=== PATIENT | female | born 1955 | race Caucasian/White ===

== ENCOUNTER 2020-08-17 08:29 | Outpatient (REF) | payer MEDICARE, BC, SELFPAY ==
[2020-08-17 12:23] LABS: Alanine Aminotransferase 17 U/L (0-31); Albumin Level 4.4 g/dL (3.5-5.0); Alkaline Phosphatase 53 U/L (39-117); Anion Gap 12 (12-20); Aspartate Amino Transferase 26 U/L (5-31); Bilirubin Total 1.5 mg/dL (0.0-1.0); Blood Urea Nitrogen 14 mg/dL (9-16); Calcium 9.4 mg/dL (8.4-10.2); Carbon Dioxide 31 mmol/L (22-29); Chloride 103 mmol/L (96-108); Cholesterol 195 mg/dL; Estimated Glomerular Filt Rate > 60; Glucose Fasting 83 mg/dL (60-99); HDL Cholesterol 60 mg/dL; LDL Cholesterol Calculated 111 mg/dl; Potassium 4.3 mmol/l (3.3-5.1); Sodium 142 mmol/L (135-145); Total Protein 7.1 g/dL (6.5-8.0); Triglycerides 123 mg/dL
[2020-08-17 12:45] LABS: TSH reflex Free T4 0.84 mIU/mL (0.32-4.0); Vitamin D 25-OH Total 43.8 ng/mL (>30)
== END 2020-08-17 08:30 | disposition home or self-care (01) ==
LOC: HO.HMGCLDS 08:29
PROVIDERS: PCP Nurse Practitioner Family; Visit Provider Nurse Practitioner Family
DX: E03.9 Hypothyroidism, unspecified (principal); E78.5 Hyperlipidemia, unspecified; Z78.0 Asymptomatic menopausal state
CPT/HCPCS: 80053; 80061; 82306; 84443

== ENCOUNTER 2022-04-19 08:06 | Outpatient (REF) | payer MEDICARE, BC, SELFPAY ==
[2022-04-19 11:22] LABS: Basophils Percent Auto 0.6 % (0-2); Eosinophils Absolute Auto 0.2 X10*3/uL (0.0-0.4); Eosinophils Percent Auto 3.2 % (0-4); Hemoglobin 12.3 g/dl (12.0-16.0); Imm Gran Abs Auto 0.01 X10*3/uL (0.00-0.03); Imm Gran Pct Auto 0.2 % (0.0-0.4); Lymphocytes Absolute Auto 1.9 X10*3/uL (1.2-4.9); Lymphocytes Percent Auto 38.6 % (20-40); MANUAL DIFF FLAG SCAN; Mean Corpuscular HGB Conc 31.5 g/dl (31.0-35.0); Mean Corpuscular Hemoglobin 27.6 pg (27.0-33.0); Mean Corpuscular Volume 87.4 fL (80.0-98.0); Mean Platelet Volume 11.1 fL (9.4-12.3); Monocytes Absolute Auto 0.4 X10*3/uL (0.1-1.2); Monocytes Percent Auto 7.4 % (2-11); Neutrophils Absolute Auto 2.5 x10*3/uL (2.0-8.3); Platelet Count 227 X10*3/uL (160-400); Red Blood Count 4.46 X10*6/uL (4.20-5.50); Red Cell Distribution Width 12.4 % (11.0-16.0); SCAN SMEAR FLAG 1
[2022-04-19 11:26] LABS: Appearance Urine HAZY; Color Urine YELLOW; Glucose Urine UA NEG (NEG); Leukocyte Esterase Urine NEG (NEG); Nitrite Urine NEG (NEG); PH 7.5 (5.0-8.0); Urine Blood NEG (NEG); Urine Ketones NEG (NEG); Urine Protein NEG (NEG-TRACE)
[2022-04-19 11:41] LABS: SLIDE REVIEW VERIFIED
[2022-04-19 11:45] LABS: Alanine Aminotransferase 13 U/L (0-31); Albumin Level 4.1 g/dL (3.5-5.0); Alkaline Phosphatase 52 U/L (39-117); Anion Gap 9 (12-20); Aspartate Amino Transferase 21 U/L (5-31); Bilirubin Total 1.7 mg/dL (0.0-1.0); Blood Urea Nitrogen 13 mg/dL (9-16); Calcium 9.2 mg/dL (8.4-10.2); Carbon Dioxide 30 mmol/L (22-29); Chloride 106 mmol/L (96-108); Cholesterol 180 mg/dL; Estimated Glomerular Filt Rate > 60; Glucose Fasting 92 mg/dL (60-99); HDL Cholesterol 61 mg/dL; LDL Cholesterol Calculated 105 mg/dl; Potassium 4.4 mmol/L (3.3-5.1); Sodium 141 mmol/L (135-145); Total Protein 6.6 g/dL (6.5-8.0); Triglycerides 71 mg/dL
[2022-04-19 12:03] LABS: TSH reflex Free T4 0.28 uIU/mL (0.32-4.0)
[2022-04-19 12:41] LABS: Free T4 (Free Thyroxine) 1.17 ng/dL (0.71-1.85)
== END 2022-04-19 08:07 | disposition home or self-care (01) ==
LOC: HO.HMGCLDS 08:06
PROVIDERS: PCP Nurse Practitioner Family; Visit Provider Nurse Practitioner Family
DX: Z00.00 Encounter for general adult medical examination without abnormal findings (principal); R17 Unspecified jaundice; E78.5 Hyperlipidemia, unspecified; F41.9 Anxiety disorder, unspecified; Z78.0 Asymptomatic menopausal state
CPT/HCPCS: 36415; 80053; 80061; 81003; 84439; 84443; 85025

== ENCOUNTER 2022-05-24 11:15 | Outpatient (REF) | payer MEDICARE, BC, SELFPAY ==
[2022-05-24 14:05] LABS: Bilirubin Direct 0.5 mg/dL (0.0-0.5); Bilirubin Total 1.7 mg/dL (0.0-1.0)
== END 2022-05-24 11:16 | disposition home or self-care (01) ==
LOC: HO.HMGCLDS 11:15
PROVIDERS: Visit Provider Nurse Practitioner Family
DX: R17 Unspecified jaundice (principal)
CPT/HCPCS: 36415; 82247; 82248

== ENCOUNTER 2023-01-11 06:51 | Outpatient (REF) | payer MEDICARE, BC, SELFPAY ==
[2023-01-11 11:25] LABS: MANUAL DIFF FLAG NO
[2023-01-11 11:35] LABS: Appearance Urine Turbid; Color Urine Yellow; Glucose Urine UA Negative (Negative); Leukocyte Esterase Urine Large (3+) (Negative); Nitrite Urine Negative (Negative); PH 7.5 (5.0-9.0); Specific Gravity - Urine 1.015 (1.005-1.025); UMIC TRIGGER UACC YES; Urine Blood Negative (Negative); Urine Ketones Negative (Negative); Urine Protein Negative (Neg-Trace)
[2023-01-11 11:38] LABS: Bacteria Urine None Seen (None Seen); Hyaline Casts Urine 0-2 /LPF (0-2); UACC Culture Trigger YES
[2023-01-11 11:51] LABS: Basophils Percent Auto 0.7 % (0-2); Eosinophils Absolute Auto 0.2 X10*3/uL (0.0-0.4); Eosinophils Percent Auto 4.1 % (0-4); Hematocrit 40.1 % (37.0-47.0); Hemoglobin 12.8 g/dl (12.0-16.0); Imm Gran Abs Auto 0.01 X10*3/uL (0.00-0.03); Imm Gran Pct Auto 0.2 % (0.0-0.4); Lymphocytes Absolute Auto 2.2 X10*3/uL (1.2-4.9); Lymphocytes Percent Auto 40.7 % (20-40); Mean Corpuscular HGB Conc 31.9 g/dl (31.0-35.0); Mean Corpuscular Hemoglobin 27.6 pg (27.0-33.0); Mean Corpuscular Volume 86.4 fL (80.0-98.0); Mean Platelet Volume 11.6 fL (9.4-12.3); Monocytes Absolute Auto 0.4 X10*3/uL (0.1-1.2); Monocytes Percent Auto 6.5 % (2-11); Neutrophils Absolute Auto 2.6 x10*3/uL (2.0-8.3); Neutrophils Percent Auto 47.8 % (45-73); Platelet Count 223 X10*3/uL (160-400); Red Blood Count 4.64 X10*6/uL (4.20-5.50); Red Cell Distribution Width 12.6 % (11.0-16.0); White Blood Count 5.4 X10*3/uL (4.8-10.8)
[2023-01-11 12:49] LABS: Alanine Aminotransferase 16 U/L (0-31); Alkaline Phosphatase 47 U/L (39-117); Anion Gap 11 (12-20); Aspartate Amino Transferase 21 U/L (5-31); Bilirubin Total 1.7 mg/dL (0.0-1.0); Blood Urea Nitrogen 14 mg/dL (9-16); Carbon Dioxide 29 mmol/L (22-29); Chloride 106 mmol/L (96-108); Cholesterol 193 mg/dL; Estimated Glomerular Filt Rate > 60; Glucose Fasting 92 mg/dL (60-99); HDL Cholesterol 60 mg/dL; LDL Cholesterol Calculated 114 mg/dl; Potassium 3.9 mmol/L (3.3-5.1); Sodium 142 mmol/L (135-145); TSH reflex Free T4 1.14 uIU/mL (0.32-4.0); Total Protein 6.2 g/dL (6.5-8.0); Triglycerides 95 mg/dL; Vitamin D 25-OH Total 46.2 ng/mL (>30)
== END 2023-01-11 06:52 | disposition home or self-care (01) ==
LOC: HO.HMGCLDS 06:51
PROVIDERS: PCP Nurse Practitioner Family; Visit Provider Nurse Practitioner Family
DX: E03.9 Hypothyroidism, unspecified (principal); Z78.0 Asymptomatic menopausal state; R82.90 Unspecified abnormal findings in urine; E55.9 Vitamin D deficiency, unspecified
CPT/HCPCS: 36415; 80053; 80061; 81001; 82306; 84443; 85025; 87086

== ENCOUNTER 2023-01-23 10:25 | Outpatient (REF) | payer MEDICARE, BC, SELFPAY ==
--- NOTE | ~2023-01-23 | US_ITS ---
EXAMINATION: US ABDOMEN COMPLETE CLINICAL INFORMATION: Unspecified jaundice. High bilirubin. COMPARISON: None available. TECHNIQUE: Real-time imaging of the abdominal viscera. FINDINGS: PANCREAS: Normal. ABDOMINAL AORTA: The proximal, mid, and distal segments are normal in caliber. INFERIOR VENA CAVA: Visualized portions are normal. LIVER: Normal. The liver is normal in size. The liver contour is normal. Parenchymal echogenicity is normal. No focal hepatic lesion. There is no intrahepatic biliary duct dilatation seen. GALLBLADDER: The gallbladder is physiologically distended. 2 mm echogenic focus contiguous with the gallbladder wall is most suggestive of a small polyp. No definitive shadowing gallstones identified. Some echogenic bowel is also noted. No gallbladder wall thickening. Negative sonographic Ji's sign. COMMON BILE DUCT: Normal in caliber measuring 0.4 cm in diameter. RIGHT KIDNEY: Normal. No hydronephrosis. No renal calculi or focal parenchymal lesions. The kidney measures 10.0 cm in maximum dimension. LEFT KIDNEY: Normal. No hydronephrosis. No renal calculi or focal parenchymal lesions. The kidney measures 10.3 cm in maximum dimension. SPLEEN: Normal. The spleen measures 8.2 cm in maximum dimension. FREE FLUID: None. US/US abdomen complete IMPRESSION: Suspected 2 mm gallbladder polyp. No definitive shadowing gallstones identified. No ultrasound evidence to suggest acute cholecystitis.
== END 2023-01-23 10:26 | disposition home or self-care (01) ==
LOC: HO.HMGCX 10:25
PROVIDERS: PCP Nurse Practitioner Family; Visit Provider Nurse Practitioner Family
DX: R17 Unspecified jaundice (principal)
CPT/HCPCS: 76700

== ENCOUNTER 2023-07-10 07:56 | Outpatient (REF) | payer MEDICARE, BC, SELFPAY ==
[2023-07-10 11:26] LABS: Appearance Urine Cloudy; Color Urine Yellow; Glucose Urine UA Negative (Negative); Leukocyte Esterase Urine Small (1+) (Negative); Nitrite Urine Negative (Negative); Specific Gravity - Urine 1.015 (1.005-1.025); UMIC TRIGGER UACC YES; Urine Blood Negative (Negative); Urine Ketones Negative (Negative); Urine Protein Negative (Neg-Trace)
[2023-07-10 11:37] LABS: Bacteria Urine None Seen (None Seen); Hyaline Casts Urine 0-2 /LPF (0-2); Other Crystals Urine Present; UACC Culture Trigger YES; WBC Urine 0-5 /HPF (0-5)
[2023-07-10 11:49] LABS: MANUAL DIFF FLAG NO
[2023-07-10 11:54] LABS: Basophils Percent Auto 0.6 % (0-2); Eosinophils Absolute Auto 0.3 X10*3/uL (0.0-0.4); Eosinophils Percent Auto 5.4 % (0-4); Hematocrit 40.8 % (37.0-47.0); Hemoglobin 13.2 g/dl (12.0-16.0); Immature Retic Fraction 4.2 % (3.0-15.9); Lymphocytes Percent Auto 37.3 % (20-40); Mean Corpuscular HGB Conc 32.4 g/dl (31.0-35.0); Mean Corpuscular Hemoglobin 28.3 pg (27.0-33.0); Mean Corpuscular Volume 87.6 fL (80.0-98.0); Mean Platelet Volume 11.3 fL (9.4-12.3); Monocytes Absolute Auto 0.3 X10*3/uL (0.1-1.2); Monocytes Percent Auto 5.4 % (2-11); Neutrophils Absolute Auto 2.8 x10*3/uL (2.0-8.3); Neutrophils Percent Auto 51.3 % (45-73); Platelet Count 230 X10*3/uL (160-400); Red Blood Count 4.66 X10*6/uL (4.20-5.50); Red Cell Distribution Width 12.5 % (11.0-16.0); Reticulocyte Percent 0.8 % (0.5-1.8); Reticulocytes Absolute 0.037 X10*6/uL (0.026-0.095); White Blood Count 5.4 X10*3/uL (4.8-10.8)
[2023-07-10 12:51] LABS: Alanine Aminotransferase 20 U/L (0-31); Albumin Level 4.3 g/dL (3.5-5.0); Alkaline Phosphatase 50 U/L (39-117); Anion Gap 10 (12-20); Aspartate Amino Transferase 25 U/L (5-31); Bilirubin Total 1.2 mg/dL (0.0-1.0); Blood Urea Nitrogen 12 mg/dL (9-16); Calcium 9.6 mg/dL (8.4-10.2); Carbon Dioxide 29 mmol/L (22-29); Chloride 108 mmol/L (96-108); Cholesterol 204 mg/dL (<200); Estimated Glomerular Filt Rate > 60; Glucose Fasting 98 mg/dL (60-99); HDL Cholesterol 67 mg/dL (>40); LDL Cholesterol Calculated 116 mg/dL (<100); Lactate Dehydrogenase 247 U/L (122-220); Potassium 3.9 mmol/L (3.3-5.1); Sodium 143 mmol/L (135-145); Total Protein 7.2 g/dL (6.5-8.0); Triglycerides 108 mg/dL (<150)
[2023-07-10 12:55] LABS: TSH reflex Free T4 0.55 uIU/mL (0.32-4.0)
[2023-07-11 05:44] LABS: Haptoglobin 75 MG/DL ((30-200))
[2023-07-12 18:08] LABS: Transglutaminase Ab IgG <1.0 U/mL; Transglutaminase IgA <1.0 U/mL
== END 2023-07-10 07:57 | disposition home or self-care (01) ==
LOC: HO.HMGCLDS 07:56
PROVIDERS: PCP Nurse Practitioner Family; Visit Provider Nurse Practitioner Family
DX: R17 Unspecified jaundice (principal); E03.9 Hypothyroidism, unspecified; E78.5 Hyperlipidemia, unspecified; R30.0 Dysuria
CPT/HCPCS: 36415; 80053; 80061; 81001; 83010; 83615; 84443; 85025; 85045; 86364; 87086

== ENCOUNTER 2023-08-02 08:50 | Outpatient (REF) | payer MEDICARE, BC, SELFPAY ==
--- NOTE | ~2023-08-02 | US_ITS ---
EXAMINATION: US RETROPERITONEAL COMPLETE (RENAL) CLINICAL INFORMATION: Other microscopic hematuria. COMPARISON: Ultrasound abdomen complete 01/23/2023 . TECHNIQUE: Real-time imaging of the kidneys and bladder. FINDINGS: RIGHT KIDNEY: 10.8 x 3.4 x 7.1 cm (SAG x AP x TRV). The kidney is normal in size, contour, and echogenicity. Renal cortical thickness is normal. No calculi or focal parenchymal lesions. There is pelviectasis, without roberto carlos hydronephrosis. LEFT KIDNEY: 10.7 x 4.2 x 5.0 cm (SAG x AP x TRV). The kidney is normal in size, contour, and echogenicity. Renal cortical thickness is normal. No calculi or focal parenchymal lesions. No hydronephrosis. BLADDER: Well distended. There is nonspecific and suspended debris within the urinary bladder. Bilateral ureteral jets are demonstrated. Prevoid bladder volume is 519 mL. Postvoid bladder volume is 37 mL. US/US retroperitoneal comp IMPRESSION: 1. Unremarkable ultrasound appearance of the kidneys. 2. There is suspended debris within the urinary bladder, for which correlation with the patient's most recent urinalysis is recommended.
[2023-08-02 11:30] LABS: Urine Cytology See Pathology rpt
== END 2023-08-02 08:51 | disposition home or self-care (01) ==
LOC: HO.HMGCX 08:50
PROVIDERS: PCP Nurse Practitioner Family; Visit Provider Nurse Practitioner Family
DX: R31.29 Other microscopic hematuria (principal)
CPT/HCPCS: 76770; 88112

== ENCOUNTER 2023-08-14 08:30 | Outpatient (AMB) | payer MEDICARE, BC, SELFPAY ==
[2023-08-14 08:47] VITALS: BP 108/64; PULSE 71; O2SAT 98; BMI 22.0
--- NOTE | 2023-08-14 08:47 | MHC.PC.OV ---
Vital Signs 08/14/23 08:47 Height 5 ft 2 in Weight 120 lb 8 oz BMI 22.0 BP 108/64 Blood Pressure Location Rt brachial Position Sitting Pulse 71 Pulse Source Pulse Oximeter Pulse Oximetry (%) 98 Oxygen Delivery Method Room Air Intake Visit Reasons: 6m follow up Allergies No Known Allergies [No Known Allergies*] Allergy (Verified 08/14/23 08:49) Medication List - Last Reconciled 08/14/23 by ZEFERINO Horn alendronate (Fosamax) 70 mg PO QWEEK ascorbic acid-collagen 125-740 mg (Collagen Plus Vitamin C) caps PO biotin mcg PO calcium carbonate (Calcium 500) 500 mg PO DAILY cholecalciferol (vitamin D3) 25 mcg PO DAILY clonazepam 0.5 mg PO DAILY PRN 30 days levothyroxine 88 mcg PO DAILY 90 days magnesium 200 mg PO DAILY Saccharomyces boulardii (Digest Probiotic (S.boulardii)) 5,000 mmu cells PO DAILY simvastatin 20 mg PO BEDTIME zolpidem 5 mg PO BEDTIME PRN 30 days Tobacco use date assessed: 08/14/23 Fall risk assessment: No Falls in past year Last assessed Fall Risk: 08/14/23 Dental Screening Dental Screen Date: 08/14/23 Did you have a dental visit in the last 12 months?: Yes Did you have a dental problem in the last 6 months where you did not have access to dental care?: No Was dental information given to patient?: Patient has dentist HPI 6m follow up HPI Details Pt c/o chest pain that radiates to her back. She had an echo and stress test at an outside facility, missing notes. Pt reports that the pain lasts anywhere from 30 minutes to an hour. Pt reports being sent to the ER previously because of inverted T waves. Will order chest CT without contrast. Pt also c/o dysuria. Will order UA and culture. Denies fever, chills, and shortness of breath. NOTE: pt was given a PPI, which she hasn't started yet. Encouraged pt to start med and let me know in approx 2 weeks if it helped at all. [facility] Medical History Gallbladder polyp Social History Housing: House Patient Tobacco Use Status: Former Tobacco user Quit Date: 5 years when she was a teenager e-Cigarette/Vaping Use: Never Used Second Hand Smoke Exposure: No Current occupational status: retired Cognitive needs: No Hearing needs: No Vision needs: No Questionnaire Thrive Questionnaire Date Thrive assessed: 02/13/23 TEMITOPE-7 AMB Questionnaire TEMITOPE-7 Date TEMITOPE - 7 assessed: 02/13/23 Source: Developed by Drs. Bernardo Aden, Ana Cedeno, Remigio Tucker and colleagues, with an educational hanh from [employer]. Review of Systems Const Reports as per HPI Physical exam (Primary Care) Vital Signs: Last Vital Signs Pulse 71 08/14/23 08:47 BP 108/64 08/14/23 08:47 Pulse Ox 98 08/14/23 08:47 Oxygen Delivery Method Room Air 08/14/23 08:47 BMI result Body Mass Index 22.0 Tobacco/Smoking Status: Tobacco use Status Tobacco use date assessed 08/14/23 08/14/23 08:53 Patient Tobacco Use Status Former Tobacco user 08/14/23 08:53 e-Cigarette/Vaping Use Never Used 08/14/23 08:53 Thrive Assessment: Date of Thrive Assessment Date Thrive assessed 02/13/23 08/14/23 08:53 Const General: cooperative Orientation/consciousness: patient oriented x3 Chest Other: no chest pain with turning upper torso side to side, no tenderness with palpation of chest Resp Effort & Inspection: normal respiratory effort Auscultation: clear to auscultation bilaterally Cardio Rate: regular rate Rhythm: regular rhythm Heart sounds: S1 normal heart sound present, S2 normal heart sound present and Murmur heart sound present systolic Neuro General: patient oriented x3 Extrem Right lower extremity: no edema Left lower extremity: no edema Psych Appearance: grossly normal Mental Status: mental status grossly normal Speech and movement: Normal speech and movement present Affect: normal affect Attitude: cooperative Thought process: Normal thought process present Thought content: Normal thought content present Insight: Good insight present (Psych) Judgement: Good judgement present (Psych) Assessment and Plan Assessment & Plan (1) Dysuria: Code(s): R30.0 - Dysuria Plan: UA ordered (2) Epigastric discomfort: Code(s): R10.13 - Epigastric pain (3) Chest discomfort: Code(s): R07.89 - Other chest pain Plan The patient agreed to the use of a medical numerical control operator for this encounter. Scribed for YOMAIRA Boykin-MARIANO by Nely Deal medical numerical control operator, on 08/14/2023 at 09:00 EST Orders: Orders Urine Culture Today R30.0 - Dysuria CT chest wo IV con Today R07.9 - Chest pain, unspecified UA CC w/rflx Micro + Cult Today R30.0 - Dysuria Coding Level of Care Code Est Pt Level 3 (09771) Diagnoses Dysuria R30.0 Epigastric discomfort R10.13 Chest discomfort R07.89
== END 2023-08-14 09:46 | disposition home or self-care (01) ==
PROVIDERS: Visit Provider Nurse Practitioner Family
DX: R30.0 Dysuria (principal); R10.13 Epigastric pain; R07.89 Other chest pain
CPT/HCPCS: 99213

== ENCOUNTER 2023-08-14 09:33 | Outpatient (REF) | payer MEDICARE, BC, SELFPAY ==
[2023-08-14 13:08] LABS: Appearance Urine Clear; Color Urine Yellow; Glucose Urine UA Negative (Negative); Leukocyte Esterase Urine Moderate (2+) (Negative); Nitrite Urine Negative (Negative); UMIC TRIGGER UACC YES; Urine Blood Small (1+) (Negative); Urine Ketones Negative (Negative); Urine Protein Negative (Neg-Trace)
[2023-08-14 13:21] LABS: Bacteria Urine 1+ (None Seen); Hyaline Casts Urine 0-2 /LPF (0-2); RBC Urine 0-2 /HPF (0-2); Squamous Epithelial Cell Urine 0-2 /HPF (0-2); UACC Culture Trigger YES; WBC Urine 21-50 /HPF (0-5)
== END 2023-08-14 09:34 | disposition home or self-care (01) ==
LOC: HO.HMGCLDS 09:33
PROVIDERS: PCP Nurse Practitioner Family; Visit Provider Nurse Practitioner Family
DX: R30.0 Dysuria (principal)
CPT/HCPCS: 81001; 87086; 87088; 87186

== ENCOUNTER 2023-08-16 13:55 | Outpatient (REF) | payer MEDICARE, BC, SELFPAY ==
--- NOTE | ~2023-08-16 | CT_ITS ---
EXAMINATION: CT CHEST WITHOUT CONTRAST CLINICAL INFORMATION: Chest pain COMPARISON: None available. TECHNIQUE: Multidetector volumetric CT imaging of the chest was done. Axial MIP volume rendering provided. Sagittal and coronal reformatted images were obtained. This CT examination was performed using dose optimization techniques as appropriate, variously including the following: *Automated exposure control *Adjustment of mA and/or kV according to patient size (this includes techniques or standardized protocols for targeted exams where dose is matched to indication/reason for exam; i.e. extremities or head) *Use of iterative reconstruction technique DLP: 86 mGy-cm FINDINGS: WAREHOUSE PACKAGING SUPERVISOR: Well-expanded lungs. LUNGS: The lungs are well-expanded and clear of acute pneumonic process. There is 4 mm nodule left lower lobe lateral segment image 49/4, 3 mm nodule left lower lobe axial image 43/3 and 3 mm nodule in the lingula axial image 285/5. No acute consolidation, mass or groundglass density seen. MEDIASTINUM: The thyroid lobes are symmetrical and normal. The central trachea and the bronchi widely patent. Heart size and the great vessels are normal caliber there is no pericardial effusion. No abnormal size mediastinal or hilar lymph nodes seen. CORONARY ARTERY CALCIFICATION: There is mild to moderate coronary artery calcifications. PLEURA: There is no pleural effusion. No pleural mass or thickening. AXILLA: There are small shotty lymph nodes in bilateral axilla. The chest wall is unremarkable. UPPER ABDOMEN: Visualized liver, spleen, pancreas and bilateral adrenal glands unremarkable. OSSEOUS STRUCTURES: There is mild ventral spondylosis mid dorsal spine from T6-T7, T7-T8 and T8-T9 disc levels. CT/CT chest wo IV con IMPRESSION: 1. Small pulmonary nodules as described above. Per the 2017 revised Fleischner Society guidelines, no routine follow up is necessarily required in low-risk patients. In high-risk patients with a nodule in the upper lobe and/or demonstrating suspicious morphology, an optional CT follow-up at 12 months may be obtained. If stable at 12 months, no further follow-up is recommended. 2. No acute consolidation or mass seen. 3. No abnormal mediastinal or axillary lymphadenopathy. 4. Mild to moderate coronary artery calcifications. Fleischner guidelines were followed.
== END 2023-08-16 13:56 | disposition home or self-care (01) ==
LOC: HO.CT 13:55
PROVIDERS: PCP Nurse Practitioner Family; Visit Provider Nurse Practitioner Family
DX: R07.9 Chest pain, unspecified (principal)
CPT/HCPCS: 71250

== ENCOUNTER 2024-01-29 07:09 | Outpatient (REF) | payer MEDICARE, BC, SELFPAY ==
[2024-01-29 10:17] LABS: MANUAL DIFF FLAG NO
[2024-01-29 10:20] LABS: Basophils Percent Auto 0.8 % (0-2); Eosinophils Absolute Auto 0.2 X10*3/uL (0.0-0.4); Eosinophils Percent Auto 3.9 % (0-4); Hematocrit 41.9 % (37.0-47.0); Hemoglobin 13.6 g/dl (12.0-16.0); Imm Gran Abs Auto 0.01 X10*3/uL (0.00-0.03); Imm Gran Pct Auto 0.2 % (0.0-0.4); Lymphocytes Absolute Auto 2.1 X10*3/uL (1.2-4.9); Lymphocytes Percent Auto 42.7 % (20-40); Mean Corpuscular HGB Conc 32.5 g/dl (31.0-35.0); Mean Corpuscular Hemoglobin 28.8 pg (27.0-33.0); Mean Corpuscular Volume 88.8 fL (80.0-98.0); Mean Platelet Volume 10.7 fL (9.4-12.3); Monocytes Absolute Auto 0.3 X10*3/uL (0.1-1.2); Monocytes Percent Auto 6.3 % (2-11); Neutrophils Absolute Auto 2.3 x10*3/uL (2.0-8.3); Neutrophils Percent Auto 46.1 % (45-73); Platelet Count 233 X10*3/uL (160-400); Red Blood Count 4.72 X10*6/uL (4.20-5.50); Red Cell Distribution Width 12.2 % (11.0-16.0); White Blood Count 4.9 X10*3/uL (4.8-10.8)
[2024-01-29 10:21] LABS: Appearance Urine Cloudy; Color Urine Yellow; Glucose Urine UA Negative (Negative); Leukocyte Esterase Urine Negative (Negative); Nitrite Urine Negative (Negative); PH 8.5 (5.0-9.0); Specific Gravity - Urine 1.015 (1.005-1.025); Urine Blood Negative (Negative); Urine Ketones Negative (Negative); Urine Protein Negative (Neg-Trace)
[2024-01-29 11:10] LABS: Alanine Aminotransferase 21 U/L (0-31); Albumin Level 4.2 g/dL (3.5-5.0); Alkaline Phosphatase 46 U/L (39-117); Anion Gap 9 (12-20); Aspartate Amino Transferase 26 U/L (5-31); Bilirubin Total 1.3 mg/dL (0.0-1.0); Blood Urea Nitrogen 12 mg/dL (9-16); Calcium 9.1 mg/dL (8.4-10.2); Carbon Dioxide 30 mmol/L (22-29); Chloride 107 mmol/L (96-108); Cholesterol 194 mg/dL (<200); Estimated Glomerular Filt Rate > 60; Glucose Fasting 92 mg/dL (60-99); HDL Cholesterol 67 mg/dL (>40); LDL Cholesterol Calculated 108 mg/dL (<100); Potassium 3.9 mmol/L (3.3-5.1); Sodium 142 mmol/L (135-145); TSH reflex Free T4 3.36 uIU/mL (0.32-4.0); Triglycerides 95 mg/dL (<150)
== END 2024-01-29 07:10 | disposition home or self-care (01) ==
LOC: HO.HMGCLDS 07:09
PROVIDERS: PCP Nurse Practitioner Family; Visit Provider Nurse Practitioner Family
DX: E03.9 Hypothyroidism, unspecified (principal); E78.5 Hyperlipidemia, unspecified; F41.9 Anxiety disorder, unspecified; Z78.0 Asymptomatic menopausal state
CPT/HCPCS: 36415; 80053; 80061; 81003; 82306; 84443; 85025

== ENCOUNTER 2024-02-20 09:34 | Outpatient (AMB) | payer MEDICARE, BC, SELFPAY ==
--- NOTE | 2024-02-20 09:42 | MHC.PC.OV ---
Vital Signs 02/20/24 09:47 Weight 117 lb BP 118/74 Blood Pressure Location Lt brachial Position Sitting Pulse 64 Pulse Source Pulse Oximeter Pulse Oximetry (%) 99 Oxygen Delivery Method Room Air Intake Visit Reasons: 3 month fu ( Labs ) Intake Note: Patient here to follow up on labs. Allergies No Known Allergies [No Known Allergies*] Allergy (Verified 02/20/24 10:11) Medication List - Last Reconciled 02/20/24 by YOMAIRA Horn-MARIANO alendronate (Fosamax) 70 mg PO QWEEK ascorbic acid-collagen 125-740 mg (Collagen Plus Vitamin C) caps PO biotin mcg PO calcium carbonate (Calcium 500) 500 mg PO DAILY cholecalciferol (vitamin D3) 25 mcg PO DAILY clonazepam 0.5 mg PO DAILY PRN 30 days levothyroxine 88 mcg PO DAILY 90 days magnesium 200 mg PO DAILY Saccharomyces boulardii (Digest Probiotic (S.boulardii)) 5,000 mmu cells PO DAILY simvastatin 20 mg PO BEDTIME zolpidem 5 mg PO BEDTIME PRN 30 days Tobacco use date assessed: 02/20/24 Dental Screening Dental Screen Date: 08/14/23 HPI 3 month fu ( Labs ) HPI Details Pt reports that every week her watch says she is in a fib. Will order holter monitor. Pt also has a systolic murmur. Stress echo last year was benign. Will order repeat echo to be done in the fall. Pt is due for a repeat chest CT in the fall, this has been ordered. Denies chest pain, shortness of breath, and dizziness. Labs resently drawn PFSH Medical History Gallbladder polyp Social History Housing: House Patient Tobacco Use Status: Former Tobacco user Quit Date: 5 years when she was a teenager e-Cigarette/Vaping Use: Never Used Second Hand Smoke Exposure: No Current occupational status: retired Cognitive needs: No Hearing needs: No Vision needs: No Questionnaire PHQ-9 Over the last 2 weeks, how often have you been bothered by any of the following problems? 1. Little interest or pleasure in doing things: nearly every day 2. Feeling down, depressed, or hopeless: nearly every day 3. Trouble falling or staying asleep, or sleeping too much: nearly every day 4. Feeling tired or having little energy: nearly every day 5. Poor appetite or overeating: nearly every day 6. Feeling bad about yourself - or that you are a failure or have let yourself or your family down: nearly every day 7. Trouble concentrating on things, such as reading the newspaper or watching television: nearly every day 8. Moving or speaking so slowly that other people could have noticed. Or the opposite - being so fidgety or restless that you have been moving around a lot more than usual: more than half the days 9. Thoughts that you would be better off or of hurting yourself in some way: more than half the days Total score: 25 Depression Screening Interpretation: Positive Depression Screening Done: Yes 10032 - PHQ-9 Billing: Yes Source: Developed by Drs. Bernardo Aden, Ana Cedeno, Remigio Tucker and colleagues, with an educational hanh from [employer]. Thrive Questionnaire Date Thrive assessed: 02/20/24 I am a: Patient What is your living situation today?: I have a steady place to live Within the past 12 months, did the food you bought not last and you didn't have the money to get more?: Never true Within the past 12 months, did you worry whether your food would run out before you got money to buy more?: Never true Do you have trouble paying for medicines?: No Do you have trouble getting transportation to medical appointments?: No Do you have trouble paying your heating and electricity bill?: No Do you have trouble taking care of your child, family member or friend?: No Do you have trouble with day-to-day activities such as bathing, preparing meals, shopping, managing finances, etc.?: No Are you currently unemployed and looking for a job?: No Are you interested in more education?: No Currently or been in a relationship where the following occur: I choose not to answer this question THRIVE Score: 0 TEMITOPE-7 AMB Questionnaire TEMITOPE-7 Date TEMITOPE - 7 assessed: 02/20/24 Feeling nervous, anxious, or on edge: 3 = Nearly every day Not being able to stop or control worryin = Nearly every day Worrying too much about different things: 3 = Nearly every day Trouble relaxin = Nearly every day Being so restless that it is hard to sit still: 3 = Nearly every day Becoming easily annoyed or irritable: 3 = Nearly every day Feeling afraid as if something awful might happen: 3 = Nearly every day Total TEMITOPE-7 score (0-4 normal; 5-9 mild; 10-14 moderate; 15-21 severe): 21 Source: Developed by Drs. Bernardo Aden, Ana Cedeno, Remigio Tucker and colleagues, with an educational hanh from [employer]. TEMITOPE-7 Assessment Billing TEMITOPE-7 Assessment Tool: TEMITOPE-7 Assessment 69812 Review of Systems Const Reports as per HPI Physical exam (Primary Care) Vital Signs: Last Vital Signs Pulse 64 02/20/24 09:47 BP 118/74 02/20/24 09:47 Pulse Ox 99 02/20/24 09:47 Oxygen Delivery Method Room Air 02/20/24 09:47 Tobacco/Smoking Status: Tobacco use Status Tobacco use date assessed 02/20/24 02/20/24 09:59 Patient Tobacco Use Status Former Tobacco user 02/20/24 09:44 e-Cigarette/Vaping Use Never Used 02/20/24 09:44 PHQ-9: PHQ-9 Score PHQ-9: Total score 25 02/20/24 10:13 Depression Screening Interpretation: Positive Thrive Assessment: Date of Thrive Assessment Date Thrive assessed 02/20/24 02/20/24 10:13 Currently or been in a relationship where the following occur: I choose not to answer this question Const General: cooperative Orientation/consciousness: patient oriented x3 Resp Effort & Inspection: normal respiratory effort Auscultation: clear to auscultation bilaterally Cardio Rate: regular rate Rhythm: regular rhythm Heart sounds: S1 normal heart sound present, S2 normal heart sound present and Murmur heart sound present systolic Neuro General: patient oriented x3 Psych Appearance: grossly normal Mental Status: mental status grossly normal Speech and movement: Normal speech and movement present Affect: normal affect Attitude: cooperative Thought process: Normal thought process present Thought content: Normal thought content present Insight: Good insight present (Psych) Judgement: Good judgement present (Psych) Assessment and Plan Assessment & Plan (1) Systolic murmur: Code(s): R01.1 - Cardiac murmur, unspecified Plan: echo this fall. (2) A-fib: Comment: NOT DIAGNOSED OF YET, HER WATCH SAID AFCHATO, HOLTER OREDERED. Code(s): I48.91 - Unspecified atrial fibrillation Plan The patient agreed to the use of a medical service technician for this encounter. Scribed for Mau Ness [employer] PET CT TECHNOLOGIST- by Nely Deal medical service technician, on 02/20/2024 at 10:25 EST. Orders: Orders CA echo transthoracic complete 6 Months R01.1 - Cardiac murmur, unspecified ECG 3 day holter monitor Today I48.91 - Unspecified atrial fibrillation Medications: Refilled zolpidem 5 mg PO BEDTIME 30 days PRN 30 tabs 0RF sleep clonazepam 0.5 mg PO DAILY 30 days PRN 30 tabs 2RF anxiety Coding Level of Care Code Est Pt Level 3 (17225) Diagnoses Systolic murmur R01.1 A-fib I48.91 Additional Codes TEMITOPE-7 Assessment Billing - TEMITOPE-7 Assessment Tool: TEMITOPE-7 Assessment 90508 ([id number])
[2024-02-20 09:47] VITALS: BP 118/74; PULSE 64; O2SAT 99
== END 2024-02-20 13:03 | disposition home or self-care (01) ==
PROVIDERS: PCP Nurse Practitioner Family; Visit Provider Nurse Practitioner Family
DX: R01.1 Cardiac murmur, unspecified (principal); I48.91 Unspecified atrial fibrillation
CPT/HCPCS: 99213

== ENCOUNTER → 2024-02-27 12:46 | Outpatient (REF) | payer MEDICARE, BC, SELFPAY ==
--- NOTE | 2024-02-27 12:49 | HM_ITS ---
Conclusion: 1. Patient was monitored for total period of 3 days 2. Baseline was normal sinus rhythm with average heart of 66 beats per minute 3. No significant pauses noted 4. Rare ectopy noted 5. No patient reported events MTDD
== END ==
LOC: HO.CARD 12:46
PROVIDERS: PCP Nurse Practitioner Family; Visit Provider Nurse Practitioner Family
DX: I48.91 Unspecified atrial fibrillation (principal)
CPT/HCPCS: 93242

== ENCOUNTER → 2024-02-27 12:49 | Outpatient (BNV) | payer MEDICARE, BC, SELFPAY | PROVIDERS: PCP Nurse Practitioner Family; Visit Provider Internal Medicine Cardiovascular Disease | DX: R00.1 Bradycardia, unspecified (principal) | CPT/HCPCS: 93244 ==

== ENCOUNTER 2024-08-05 07:35 | Outpatient (REF) | payer MEDICARE, BC, SELFPAY ==
[2024-08-05 11:01] LABS: MANUAL DIFF FLAG NO
[2024-08-05 11:11] LABS: Appearance Urine Turbid; Color Urine Yellow; Glucose Urine UA Negative (Negative); Leukocyte Esterase Urine Small (1+) (Negative); Nitrite Urine Negative (Negative); PH 8.5 (5.0-9.0); Specific Gravity - Urine 1.015 (1.005-1.025); UMIC TRIGGER UACC YES; Urine Blood Negative (Negative); Urine Ketones Negative (Negative); Urine Protein Negative (Neg-Trace)
[2024-08-05 11:12] LABS: Basophils Percent Auto 0.8 % (0-2); Eosinophils Absolute Auto 0.2 X10*3/uL (0.0-0.4); Eosinophils Percent Auto 3.6 % (0-4); Hematocrit 42.1 % (37.0-47.0); Hemoglobin 13.5 g/dl (12.0-16.0); Imm Gran Abs Auto 0.01 X10*3/uL (0.00-0.03); Imm Gran Pct Auto 0.2 % (0.0-0.4); Lymphocytes Absolute Auto 1.9 X10*3/uL (1.2-4.9); Lymphocytes Percent Auto 35.2 % (20-40); Mean Corpuscular HGB Conc 32.1 g/dl (31.0-35.0); Mean Corpuscular Hemoglobin 28.2 pg (27.0-33.0); Mean Corpuscular Volume 88.1 fL (80.0-98.0); Mean Platelet Volume 11.2 fL (9.4-12.3); Monocytes Absolute Auto 0.4 X10*3/uL (0.1-1.2); Monocytes Percent Auto 6.6 % (2-11); Neutrophils Absolute Auto 2.8 x10*3/uL (2.0-8.3); Neutrophils Percent Auto 53.6 % (45-73); Platelet Count 232 X10*3/uL (160-400); Red Blood Count 4.78 X10*6/uL (4.20-5.50); Red Cell Distribution Width 12.3 % (11.0-16.0); White Blood Count 5.3 X10*3/uL (4.8-10.8)
[2024-08-05 11:42] LABS: Alanine Aminotransferase 17 U/L (0-31); Albumin Level 4.3 g/dL (3.5-5.0); Alkaline Phosphatase 44 U/L (39-117); Anion Gap 12 (12-20); Aspartate Amino Transferase 25 U/L (5-31); Bilirubin Total 1.6 mg/dL (0.0-1.0); Blood Urea Nitrogen 11 mg/dL (9-16); Calcium 9.6 mg/dL (8.4-10.2); Carbon Dioxide 29 mmol/L (22-29); Chloride 106 mmol/L (96-108); Cholesterol 205 mg/dL (<200); Estimated Glomerular Filt Rate > 60; Glucose Fasting 90 mg/dL (60-99); HDL Cholesterol 71 mg/dL (>40); LDL Cholesterol Calculated 112 mg/dL (<100); Potassium 3.8 mmol/L (3.3-5.1); Sodium 143 mmol/L (135-145); Total Protein 7.2 g/dL (6.5-8.0); Triglycerides 114 mg/dL (<150)
[2024-08-05 11:42] LABS: Bacteria Urine None Seen (None Seen); Hyaline Casts Urine 0-2 /LPF (0-2); Other Crystals Urine Present; RBC Urine 0-2 /HPF (0-2); Squamous Epithelial Cell Urine 0-2 /HPF (0-2); UACC Culture Trigger YES
[2024-08-05 11:46] LABS: TSH reflex Free T4 3.74 uIU/mL (0.32-4.0); Vitamin D 25-OH Total 86.1 ng/mL (>30)
== END 2024-08-05 07:36 | disposition home or self-care (01) ==
LOC: HO.WFDLDS 07:35
PROVIDERS: Visit Provider Nurse Practitioner Family
DX: E78.5 Hyperlipidemia, unspecified (principal); E03.9 Hypothyroidism, unspecified; Z78.0 Asymptomatic menopausal state; R30.0 Dysuria
CPT/HCPCS: 36415; 80053; 80061; 81001; 82306; 84443; 85025; 87086

== ENCOUNTER → 2024-08-12 13:35 | Outpatient (REF) | payer MEDICARE, BC, SELFPAY ==
--- NOTE | 2024-08-12 13:38 | CA_ITS ---
Transthoracic Echocardiogram Amended Patient (Last, First, Middle): Regi Hampton C Gender: Female Date of : 1955 Age: 69 Procedure Date: 08/12/2024 Procedure Type: Transthoracic Echocardiogram Location: OP Height: 154.94 cm Weight: 52.16 kg BSA: 1.49 m2 Heart Rate: bpm BP: 116 / 60 mmHg Engineering Drawings Checker: Referring MD: Mau Ness [facility] Care Assistant: Bernardo Vigil MD Symptoms: R01.1 - Cardiac murmur, unspecified Study Quality: Good ECG Rhythm: Sinus Conclusions: - 1. Normal LV ejection fraction of 60 65% with grade 1 diastolic dysfunction 2. Normal cardiac valvular Dopplers 3. Mildly dilated ascending aorta at 3.8 cm 4. No gross pericardial effusion Findings Left Ventricle Normal left ventricular size, thickness, and systolic function. The visually estimated ejection fraction is between 60-65%. Spectral Doppler is indicative of an impaired relaxation filling pattern. E/E prime ratio is <8, consistent with normal filling pressures. Evidence suggests grade I (mild) diastolic dysfunction. possible hypokinesis of the basal inferior wall Right Ventricle Normal right ventricular cavity size and systolic function. Atria Both atria are normal in size. There is no evidence of interatrial shunt. Aortic Valve Normal aortic valve structure and function. There is no aortic valve stenosis. There is no aortic valve regurgitation. Mitral Valve Normal mitral valve structure and function. There is trace mitral valve regurgitation. There is no mitral valve stenosis. Pulmonic Valve The pulmonic valve is likely normal. Tricuspid Valve Normal tricuspid valve structure. There is trace tricuspid valve regurgitation. The right ventricular systolic pressure is normal. The right ventricular systolic pressure is 18 mmHg. Normal right atrial pressure. There is no evidence of pulmonary hypertension. Great Vessels The pulmonary artery was not well visualized. There is mild dilatation of the ascending aorta measuring 3.80 cm. There is no evidence of plaque in the aorta. Venous The inferior vena cava is normal in size and collapses greater than 50% with inspiration. Pericardium/Pleural There is no evidence of pericardial effusion. Prior Study Comparison Changes noted compared to prior study dated: 01/20/2020. ascending aorta is mildly dilated. Possible basal inferior wall motion abnormality Measurements 2D Linear Measurements IVSd: 1.03 0.6-0.9/0.6-1.0 cm LVIDd: 3.61 3.9-5.3/4.2-5.9 cm LVIDd Index: 2.42 2.4-3.2/2.2-3.1 cm/m2 LVIDs: 2.35 2.0-3.6 cm LVPWd: 1.12 0.7-1.1 cm Ao Root: 3.20 2.1-3.5 cm LA Diam: 3.60 2.7-3.8/3.0-4.0 cm LAIDs Index: 2.42 1.5-2.3 cm/m2 LV Mass: 149.82 67-162/88-224 g LV Mass Index: 100.55 43-95/49-115 g/m2 LVOT Diam: 2.00 3.0+(-)1.3 cm 2D Volumes LA Vol: 31.50 2D Systolic Function EF 4C: 59.00 >55% EF 2C: 66.70 >55% EF BiP: 62.80 >55% Mitral Valve MV Pk E: 0.63 MV PK A: 0.89 MV Decel Time: 268.00 E/A: 0.70 E'Lateral: 7.07 E'Medial: 4.57 E/E' Med: 13.80 E/E' Lat: 8.90 PHT: 79.00 MVA PHT: 2.78 Decel [place]: 2.35 Aortic Valve AoV Pk Melchor: 0.93 AoV Mn Melchor: 0.70 AoV VTI: 0.26 AoV Pk Grad: 3.00 Aov Mn Grad: 2.00 JESE Cont.VTI: 2.73 LVOT LVOT Pk Melchor: 0.83 LVOT Mn Melchor: 0.52 LVOT VTI: 0.23 LVOT Pk Grad: 3.00 LVOT Mn Grad: 1.00 LVOT Diam: 2.00 LVOT Area: 3.14 Diastolic Function MV Pk E: 0.63 MV Pk A: 0.89 E/A: 0.70 E'Medial: 4.57 E/E' Med: 13.80 E' Laterial: 7.07 E/E' Lat: 8.90 Right Ventricle TAPSE (mm): 20.00 TVS' Melchor: 11.00 Tricuspid Valve TR Pk Melchor: 1.91 TR Pk Grad: 15.00 RA Press: 3.00 RVSP: 18.00 Great Vessels Aorta Ao Root-2D: 3.20 2.0-3.7 cm Ao Asc: 3.80 2.1-3.4 cm Pulmonary Valve PV Pk Melchor: 0.90 Peak PV Grad: 3.00 Updated in Other Vendor System with Status of Final Bernardo Vigil MD electronically signed on 08/13/2024 12:57:28 PM with status of Final
== END ==
LOC: HO.CARD 13:35
PROVIDERS: PCP Nurse Practitioner Family; Visit Provider Nurse Practitioner Family
DX: R01.1 Cardiac murmur, unspecified (principal)
CPT/HCPCS: 93306

== ENCOUNTER → 2024-08-12 13:38 | Outpatient (BNV) | payer MEDICARE, BC, SELFPAY | PROVIDERS: PCP Nurse Practitioner Family; Visit Provider Internal Medicine Cardiovascular Disease | DX: I51.89 Other ill-defined heart diseases (principal); R01.1 Cardiac murmur, unspecified | CPT/HCPCS: 93306 ==

== ENCOUNTER 2024-08-14 09:37 | Outpatient (REF) | payer MEDICARE, BC, SELFPAY ==
--- NOTE | ~2024-08-14 | US_ITS ---
EXAMINATION: US ABDOMEN LIMITED CLINICAL INFORMATION: Cholesterolosis of the gallbladder. COMPARISON: Ultrasound kidneys and bladder 08/02/2023. Ultrasound abdomen complete 01/23/2023. TECHNIQUE: Real-time imaging of the right upper quadrant abdominal viscera. FINDINGS: PANCREAS: The visualized portion of the pancreas head and body are normal, portion of the pancreatic body and tail, not visualized are obscured by bowel gas. LIVER: Normal. The liver is normal in size. The liver contour is normal. Parenchymal echogenicity is normal. No focal hepatic lesion. There is no intrahepatic biliary duct dilatation seen. GALLBLADDER: Echogenic structure adherent to the gallbladder wall probably a polyp measure up to 1 cm. The gallbladder is physiologically distended without evidence of stones, sludge, wall thickening or pericholecystic fluid. COMMON BILE DUCT: Normal in caliber measuring 0.2 cm in diameter. RIGHT KIDNEY: Normal. No hydronephrosis. No renal calculi or focal parenchymal lesions. The kidney measures 10.9 cm in maximum dimension. FREE FLUID: None. US/US abdomen limited IMPRESSION: 1. Redemonstration of echogenic structure adherent to the gallbladder wall 1 cm probably a polyp. Attention to follow-up recommended, continued surveillance recommended, consider follow-up ultrasound in 12 months. 2. Ultrasound otherwise normal. Electronically signed by: Stephy Das MD 09/20/2024 05:12 PM [facility]
== END 2024-08-14 09:38 | disposition home or self-care (01) ==
LOC: HO.US 09:37
PROVIDERS: PCP Nurse Practitioner Family; Visit Provider Nurse Practitioner Family
DX: K82.4 Cholesterolosis of gallbladder (principal)
CPT/HCPCS: 76705

== ENCOUNTER 2024-08-19 12:17 | Outpatient (AMB) | payer MEDICARE, BC, SELFPAY ==
[2024-08-19 12:30] VITALS: BP 102/62; PULSE 61; O2SAT 98; BMI 22.1
--- NOTE | 2024-08-19 12:30 | A.OFFPC_ITS ---
Vital Signs 08/19/24 12:30 Height 5 ft 1 in Weight 117 lb BMI 22.1 BP 102/62 Blood Pressure Location Lt brachial Position Sitting Pulse 61 Pulse Source Pulse Oximeter Pulse Oximetry (%) 98 Oxygen Delivery Method Room Air Intake Visit Reasons: Annual PE Allergies No Known Allergies [No Known Allergies*] Allergy (Verified 08/19/24 12:34) Medication List - Last Reconciled 08/19/24 by ZEFERINO Horn alendronate (Fosamax) 70 mg PO QWEEK ascorbic acid-collagen 125-740 mg (Collagen Plus Vitamin C) caps PO atorvastatin 20 mg PO BEDTIME biotin mcg PO calcium carbonate (Calcium 500) 500 mg PO DAILY cholecalciferol (vitamin D3) 25 mcg PO DAILY clonazepam 0.5 mg PO DAILY PRN 30 days levothyroxine 88 mcg PO DAILY 90 days magnesium 200 mg PO DAILY Saccharomyces boulardii (Digest Probiotic (S.boulardii)) 5,000 mmu cells PO DAILY zolpidem 5 mg PO BEDTIME PRN 30 days Tobacco use date assessed: 08/19/24 Fall risk assessment: No Falls in past year Last assessed Fall Risk: 08/19/24 Dental Screening Dental Screen Date: 08/19/24 Did you have a dental visit in the last 12 months?: Yes Did you have a dental problem in the last 6 months where you did not have access to dental care?: No Was dental information given to patient?: Patient has dentist HPI Annual PE HPI Details Pt is here for a PE. Labs were already performed. Colon screen is up to date. Has a relish maker. Mammo is up to date according to pt. Pt's bilirubin was elevated. Will order further labs. Awaiting US results. Pt does report intermittent epigastric discomfort. Bone density ordered [facility] Medical History Ascending aorta dilatation Gallbladder polyp Social History Housing: House Patient Tobacco Use Status: Former Tobacco user e-Cigarette/Vaping Use: Never Used Second Hand Smoke Exposure: No service: No Current occupational status: retired Cognitive needs: No Hearing needs: No Vision needs: No Questionnaire PHQ-9 Over the last 2 weeks, how often have you been bothered by any of the following problems? 82040 - PHQ-9 Billing: Patient declined-do not bill Source: Developed by Drs. Bernardo Aden, Ana Cedeno, Remigio Tucker and colleagues, with an educational hanh from [employer]. Thrive Questionnaire Date Thrive assessed: 08/12/24 I am a: Patient What is your living situation today?: I have a steady place to live Within the past 12 months, did the food you bought not last and you didn't have the money to get more?: Never true Within the past 12 months, did you worry whether your food would run out before you got money to buy more?: Never true Do you have trouble paying for medicines?: No Do you have trouble getting transportation to medical appointments?: No Do you have trouble paying your heating and electricity bill?: No Do you have trouble taking care of your child, family member or friend?: No Do you have trouble with day-to-day activities such as bathing, preparing meals, shopping, managing finances, etc.?: No Are you interested in more education?: Yes Please select the resources that you would like help with: None Currently or been in a relationship where the following occur: No concerns reported THRIVE Score: 0 AUDIT C Alcohol Use Questionnaire (AUDIT-C) 1. How often do you have a drink containing alcohol?: Monthly or less 2. How many drinks containing alcohol do you have on a typical day when you are drinking?: 3 or 4 3. How often do you have six or more drinks on one occasion?: Never Total Score: 2 TEMITOPE-7 AMB Questionnaire TEMITOPE-7 Date TEMITOPE - 7 assessed: 02/20/24 Feeling nervous, anxious, or on edge: 3 = Nearly every day Not being able to stop or control worryin = Nearly every day Worrying too much about different things: 3 = Nearly every day Trouble relaxin = Nearly every day Being so restless that it is hard to sit still: 3 = Nearly every day Becoming easily annoyed or irritable: 3 = Nearly every day Feeling afraid as if something awful might happen: 2 = More than half the days Total TEMITOPE-7 score (0-4 normal; 5-9 mild; 10-14 moderate; 15-21 severe): 20 Source: Developed by Drs. Bernardo Aden, Ana Cedeno, Remigio Tucker and colleagues, with an educational hanh from [employer]. TEMITOPE-7 Assessment Billing TEMITOPE-7 Assessment Tool: TEMITOPE-7 Assessment 84383 Review of Systems Const Denies chills and Denies fever(s) Eyes Denies blurry vision ENT Denies vertigo, Denies dizziness and Denies sore throat Card Denies chest pain at rest, Denies chest pain with activity, Denies diaphoresis, Denies dyspnea and Denies dyspnea on exertion Resp Denies cough, Denies dyspnea, Denies dyspnea on exertion and Denies wheezing GI Reports abdominal pain (intermittent epigastric discomfort), Denies melena, Denies hematochezia, Denies constipation, Denies diarrhea and Denies loose stools Denies hematuria Musc Denies numbness and Denies tingling Skin/Breast Denies lesions Neuro Denies vertigo, Denies dizziness, Denies numbness and Denies tingling Psych Denies anxiety, Denies depression, Denies homicidal ideation, Denies suicidal ideation and Denies other (substance abuse) Aller/Immun Denies wheezing Physical exam (Primary Care) Vital Signs: Last Vital Signs Pulse 61 08/19/24 12:30 BP 102/62 08/19/24 12:30 Pulse Ox 98 08/19/24 12:30 Oxygen Delivery Method Room Air 08/19/24 12:30 BMI result Body Mass Index 22.1 Tobacco/Smoking Status: Tobacco use Status Tobacco use date assessed 08/19/24 08/19/24 12:35 Patient Tobacco Use Status Former Tobacco user 08/19/24 12:30 e-Cigarette/Vaping Use Never Used 08/19/24 12:30 Thrive Assessment: Date of Thrive Assessment Date Thrive assessed 08/12/24 08/19/24 12:30 Currently or been in a relationship where the following occur: No concerns reported Const General: cooperative Nutritional Appearance: well nourished Orientation/consciousness: patient oriented x3 HENMT Head: Yes normal to inspection, Yes normocephalic and Yes atraumatic Ears: TM's normal bilaterally Eyes General: appearance normal, both eyes and all related structures Alignment and Position: alignment normal and position normal Neck Neck: Yes normal visual inspection, Yes no lymphadenopathy and Yes supple Resp Effort & Inspection: normal respiratory effort Auscultation: clear to auscultation bilaterally Cardio Rate: regular rate Rhythm: regular rhythm Heart sounds: S1 normal heart sound present, S2 normal heart sound present and Murmur heart sound present systolic GI Palpation (GI): Soft to palpation and nontender Auscultation: normal bowel sounds Skin Rashes: no rashes Neuro General: patient oriented x3, moves all extremities, no focal motor deficits and deep tendon reflexes 2+ bilaterally Romberg Test: Negative Psych Appearance: grossly normal Mental Status: mental status grossly normal Speech and movement: Normal speech and movement present Affect: normal affect Attitude: cooperative Thought process: Normal thought process present Thought content: Normal thought content present Insight: Good insight present (Psych) Judgement: Good judgement present (Psych) Coding Level of Care Code Est Pt Prev Care >65y(56689) Diagnoses Elevated bilirubin R17 Post-menopausal Z78.0 Physical exam Z00.00 Additional Codes TEMITOPE-7 Assessment Billing - TEMITOPE-7 Assessment Tool: TEMITOPE-7 Assessment 58182 ([id number]) Assessment & Plan Assessment & Plan (1) Elevated bilirubin: Code(s): R17 - Unspecified jaundice Category: Medical Plan: Labs ordered (2) Post-menopausal: Code(s): Z78.0 - Asymptomatic menopausal state Category: Medical (3) Physical exam: Code(s): Z00.00 - Encounter for general adult medical examination without abnormal findings Category: Medical Plan The patient agreed to the use of a certified medical dosimetrist for this encounter. Scribed for ZEFERINO Boykin by Nely Deal certified medical dosimetrist, on 08/19/2024 at 12:45 EST. Orders: Orders Bilirubin Direct Today R17 - Unspecified jaundice XR DEXA axial skeleton Today Z78.0 - Asymptomatic menopausal state Lactate Dehydrogenase Today R17 - Unspecified jaundice Haptoglobin Today R17 - Unspecified jaundice Bilirubin Total Today R17 - Unspecified jaundice Reticulocyte Count Today R17 - Unspecified jaundice Medications: Refilled clonazepam 0.5 mg PO DAILY 30 days PRN 30 tabs 2RF anxiety
== END 2024-08-19 15:18 | disposition home or self-care (01) ==
PROVIDERS: PCP Nurse Practitioner Family; Visit Provider Nurse Practitioner Family
DX: Z00.00 Encounter for general adult medical examination without abnormal findings (principal); R17 Unspecified jaundice; Z78.0 Asymptomatic menopausal state

== ENCOUNTER → 2024-08-19 12:17 | Outpatient (BNVA) | payer MEDICARE, BC, SELFPAY | PROVIDERS: PCP Nurse Practitioner Family; Visit Provider Nurse Practitioner Family ==

== ENCOUNTER 2024-08-19 13:21 | Outpatient (REF) | payer MEDICARE, BC, SELFPAY ==
[2024-08-19 16:49] LABS: Haptoglobin 52 mg/dL (63-273)
[2024-08-19 16:53] LABS: Bilirubin Direct 0.4 mg/dL (0.0-0.5); Bilirubin Total 1.2 mg/dL (0.0-1.0); Lactate Dehydrogenase 246 U/L (122-220)
[2024-08-19 17:13] LABS: Immature Retic Fraction 3.5 % (3.0-15.9); Reticulocytes Absolute 0.054 X10*6/uL (0.026-0.095)
[2024-08-19 18:50] LABS: RET ABN SCTR 1; Reticulocyte Percent 1.2 % (0.5-1.8)
== END 2024-08-19 13:22 | disposition home or self-care (01) ==
LOC: HO.HMGCLDS 13:21
PROVIDERS: PCP Nurse Practitioner Family; Visit Provider Nurse Practitioner Family
DX: Z00.00 Encounter for general adult medical examination without abnormal findings (principal); R17 Unspecified jaundice; Z78.0 Asymptomatic menopausal state
CPT/HCPCS: 36415; 82247; 82248; 83010; 83615; 85045; 96127; 99397

== ENCOUNTER 2024-09-09 13:24 | Outpatient (REF) | payer MEDICARE, BC, SELFPAY ==
--- NOTE | ~2024-09-09 | MM_ITS ---
EXAMINATION: BONE DENSITOMETRY CLINICAL INDICATION: Asymptomatic menopausal state. COMPARISON: This is the patient's baseline examination. TECHNIQUE: Using a [employer] DXA System (software version: 13.1) manufactured by [employer], dual-energy x-ray absorptiometry was performed of the lumbar spine and left hip. The images are of good technical quality. Summary results are attached. FINDINGS: LEFT FEMUR, NECK: BMD 0.795 g/cm2, Z-score 0.3, T-score -1.7, osteopenia. LEFT FEMUR, TOTAL: BMD 0.776 g/cm2, Z-score 0.0, T-score -1.8, osteopenia. AP SPINE L1-L4: BMD 1.004 g/cm2, Z-score 0.7, T-score -1.5, osteopenia. IDENTIFIED RISK FACTORS: Menopause. HISTORY OF FRACTURE: None listed. MEDICATIONS: Bisphosphonate, calcium, multivitamin, vitamin D. MM/XR DEXA axial skeleton IMPRESSION: 1. DIAGNOSIS: Osteopenia based on the lowest T-score value of -1.8 in the total femur applying World Health Organization criteria. 2. 10-YEAR FRACTURE RISK PREDICTION, FRAX: Major osteoporotic fracture (clinical spine, forearm, hip or shoulder) 10.2%. Hip fracture 2.0%. 3. Treatment Recommendations: NOF guidelines recommend consideration for treatment in postmenopausal women and men age 50 and older presenting with the following: -A hip or vertebral (clinical or morphometric) fracture. -T-score less than or equal to -2.5 at the femoral neck or spine after appropriate evaluation to exclude secondary causes. -Low bone mass at the hip or spine and a 10-year fracture probability by FRAX of greater than or equal to 3% for hip fracture or greater than or equal to 20% for major osteoporotic fracture based on the [place] adapted WHO algorithm. 4. Other Recommendations: All treatment decisions require clinical judgment and consideration of individual patient factors, including patient preferences, comorbidities, previous drug use, risk factors not captured in the FRAX model (e.g. frailty, falls, vitamin D deficiency, increased bone turnover, interval significant decline in bone density) and possible under or overestimation of fracture risk by FRAX. Additional medical evaluation for secondary cause of low bone mineral density may be appropriate. FUTURE SCAN RECOMMENDATION: People with diagnosed cases of osteoporosis or at high risk for fracture should have regular bone mineral density tests. For patients eligible for Medicare, routine testing is allowed once every 2 years. The testing frequency can be increased to one year for patients who have rapidly progressing disease, those who are receiving or discontinuing medical therapy to restore bone mass, or have additional risk factors. Electronically signed by: Stephy Das MD 09/11/2024 08:12 AM [facility] [place]
== END 2024-09-09 13:25 | disposition home or self-care (01) ==
LOC: HO.MAMMO 13:24
PROVIDERS: PCP Nurse Practitioner Family; Visit Provider Nurse Practitioner Family
DX: Z13.820 Encounter for screening for osteoporosis (principal); Z78.0 Asymptomatic menopausal state
CPT/HCPCS: 77080

== ENCOUNTER → 2024-09-11 07:36 | Outpatient (REF) | payer MEDICARE, BC, SELFPAY ==
--- NOTE | ~2024-09-11 | NM_ITS ---
EXAMINATION: BILIARY TRACT IMAGING STUDY WITH CCK CLINICAL INFORMATION: Unspecified jaundice. COMPARISON: Right upper quadrant abdominal ultrasound done on 08/14/[address] of the chest done on 08/16/2023. TECHNIQUE: Serial gamma scintillation camera images were obtained over the abdomen for a total observation period of 60 minutes following the intravenous administration of 5.0 mCi Tc-99m mebrofenin.. FINDINGS: There is good concentration of activity in the liver by 5 minutes post injection. Biliary activity is visualized by 10 minutes. The gallbladder is well visualized by 53 minutes. Small bowel is well visualized by 16 minutes. At 60 minutes post radiopharmaceutical injection, a 30-minute infusion of 1.0 micrograms Sincalide was then begun and an additional 40 minutes of images were obtained. There is emptying of the gallbladder. By the end of the study there is good clearance of activity from the liver and visualization of diffuse small bowel activity. The calculated gallbladder ejection fraction is 93% (Normal range of gallbladder ejection fraction is between 35-80%; GBEF <35% is considered biliary hypokinesia and >80% is considered biliary hyperkinesia; Ref. #1-Clinical Journal of Gastroenterology (2020) 14:1070-9162; Ref.#2-[email or web address]). NM/NM hepatobiliary w pharm IMPRESSION: Visualization of the gallbladder is evidence of a patent cystic duct and strong evidence against the diagnosis of acute cholecystitis. The common bile duct is patent. Gallbladder emptying and ejection fraction are abnormal. Liver function appears normal. Electronically signed by: Cayla Sandoval MD 09/29/2024 12:48 PM [facility] [place]
== END ==
LOC: HO.NUCMED 07:36
PROVIDERS: PCP Nurse Practitioner Family; Visit Provider Nurse Practitioner Family
DX: R17 Unspecified jaundice (principal)
CPT/HCPCS: 78227; A9537; J2805

== ENCOUNTER 2024-10-08 09:17 | Outpatient (REF) | payer MEDICARE, BC, SELFPAY | END 2024-10-08 09:18 | disposition home or self-care (01) | LOC: HO.CT 09:17 | PROVIDERS: PCP Nurse Practitioner Family; Visit Provider Nurse Practitioner Family | DX: R91.8 Other nonspecific abnormal finding of lung field (principal) | CPT/HCPCS: 71250 ==

== ENCOUNTER 2024-11-05 07:48 | Outpatient (REF) | payer MEDICARE, BC, SELFPAY ==
[2024-11-05 10:59] LABS: Appearance Urine Turbid; Color Urine Yellow; Glucose Urine UA Negative (Negative); Leukocyte Esterase Urine Negative (Negative); Nitrite Urine Negative (Negative); Specific Gravity - Urine 1.015 (1.005-1.025); Urine Blood Negative (Negative); Urine Ketones Negative (Negative); Urine Protein Negative (Neg-Trace)
[2024-11-05 11:12] LABS: Alanine Aminotransferase 19 U/L (0-31); Alkaline Phosphatase 41 U/L (39-117); Anion Gap 10 (12-20); Aspartate Amino Transferase 27 U/L (5-31); Bilirubin Total 1.7 mg/dL (0.0-1.0); Blood Urea Nitrogen 15 mg/dL (9-16); Calcium 8.9 mg/dL (8.4-10.2); Carbon Dioxide 29 mmol/L (22-29); Chloride 107 mmol/L (96-108); Cholesterol 169 mg/dL (<200); Estimated Glomerular Filt Rate > 60; Glucose Fasting 86 mg/dL (60-99); HDL Cholesterol 66 mg/dL (>40); LDL Cholesterol Calculated 85 mg/dL (<100); Potassium 3.8 mmol/L (3.3-5.1); Sodium 142 mmol/L (135-145); Total Protein 6.5 g/dL (6.5-8.0); Triglycerides 94 mg/dL (<150)
== END 2024-11-05 07:49 | disposition home or self-care (01) ==
LOC: HO.WFDLDS 07:48
PROVIDERS: Visit Provider Nurse Practitioner Family
DX: E78.5 Hyperlipidemia, unspecified (principal); R30.0 Dysuria
CPT/HCPCS: 36415; 80053; 80061; 81003

== ENCOUNTER → 2024-12-07 06:58 | Outpatient (BNVA) | payer MEDICARE, BC, SELFPAY | PROVIDERS: PCP Nurse Practitioner Family; Visit Provider Nurse Practitioner Family ==

== ENCOUNTER 2024-12-07 06:59 | Outpatient (AMB) | payer MEDICARE, BC, SELFPAY ==
--- OUTSIDE RECORDS SUMMARY | 2024-12-07 07:01 | XMS_ITS | Clinical Summary ---
Author Organization 175 [facility] Address [address] [place] [address] Phone Care Team Providers Care Chief Ophthalmic Technician Name Role Phone Mau Ness NP Primary Care Provider Social History Tobacco Use Types Packs/Day Years Used Date Smoking Tobacco: Never Assessed Sex and Gender Information Value Date Recorded Sex Assigned at Not on file Gender Identity Not on file Sexual Orientation Not on file Plan of Treatment Upcoming Encounters Date Type Department Care Team ([facility] Contact Info) Description 12/31/2024 1:00 PM EST Consult General Surgery - [facility] [address] [phone] Jovi Albright MD [address] [phone] Health Maintenance Due Date Last Done Comments Breast Cancer Screening 1955 DTaP,Tdap,and Td Vaccines (1 - Tdap) 02/11/1972 Zoster Vaccines (1 of 2) 2003 Pneumococcal Vaccine: 65+ Ye ars (1 of 1 - PCV) 2018 Colorectal Cancer Screening: Colonoscopy 10/07/2022 Depression Screening 10/07/2022 Falls Risk Assessment 10/07/2022 Hepatitis C Screening 10/07/2022 Medicare Annual Wellness Visit 10/07/2022 Osteoporosis Screening (Bone Density Screening) 10/07/2022 Social Influencers of Health Screening 10/07/2022 COVID-19 Vaccine ( - 2023-2 5 season) 2024 Influenza Vaccine (#1) 2024 RSV Immunization Patients 60 + Years Old (1 - 1-dose 75+ series) 02/11/2028 HIB Vaccines Aged Out No longer eligi ble based on patient's age to complete this topic HPV Vaccines Aged Out No longer eligi ble based on patient's age to complete this topic Hepatitis A Vaccines Aged Out No long er eligible based on patient's age to complete this topic Hepatitis B Vaccines Aged Out No long er eligible based on patient's age to complete this topic IPV Vaccines Aged Out No longer eligi ble based on patient's age to complete this topic MMR Vaccines Aged Out No longer eligi ble based on patient's age to complete this topic Meningococcal ACWY Vaccine Aged Out N o longer eligible based on patient's age to complete this topic RSV Immunization Patients Un yonny 20 months Aged Out No longer eligible b ased on patient's age to complete this topic Varicella Vaccines Aged Out No longer eligible based on patient's age to complete this topic Care Teams Chief Ophthalmic Technician Relationship Specialty Start Date End Date Mau Ness NP PCP - General Family Medicine 10/20/24
--- OUTSIDE RECORDS SUMMARY | 2024-12-07 07:02 | XMS_ITS | Data Portability ---
Author Organization MIGUELINA Tejeda s, [address] Address [address] [place] [address] Assessment No assessment recorded. Plan of Treatment Reminders Order Date Submit Date Provider Last Modified By Organization Details Last Modified Time Details Appointments None recorded. Lab urinalysis , dipstick 2023 024 [email or web address] [facility], [address] [place], [address], 17:32:47 culture, urine 2023 [facility], [address] [place] [address], [place], [address], 22:05:58 Referral None recorded. Procedures None recorded. Surgeries None recorded. Imaging None recorded. Medication Orders Macrobid 100 mg capsule 2023 024 [id number], [address] [facility], [place], [address], 17:37:16 Patient TargetsNo targets recorded. Patient InstructionsNo instructions recorded. Reason for Referral None Reported. Results Created Date Observation Date Name Description Value Unit Range Abnormal Flag Note LastModifiedBy Organization Detail LastModifiedTime 07/07/2007/08/2024 URINE CULTU RE, [place] NE urine culture, routine FINAL REPORT Not Available [facility] ([facility]) [address], [place], [address], 07/08/2024 22:05:58 07/07/2007/08/2024 URINE CULTU RE, ROUTI NE result 1 NO GROWTH Not Available [facility] ([facility]) [address], [place], [address], 07/08/2024 22:05:58 07/07/20 24 07/07/2024 urina lysis , dipst ick Unknown Analyte Normal = light yellow Not Available [facility] [address] [place] [address], [phone], 07/07/2024 17:16:21 07/07/20 24 07/07/2024 urina lysis , dipst ick Unknown Analyte Yellow Not Available [facility] [address] [place] [address], [phone], 07/07/2024 17:16:21 07/07/20 24 07/07/2024 urina lysis , dipst ick Unknown Analyte Normal = clear Not Available [facility] [address] [place] [address], [phone], 07/07/2024 17:16:21 07/07/20 24 07/07/2024 urina lysis , dipst ick Unknown Analyte Clear Not Available [facility] [address] [place] [address], [address], 07/07/2024 17:16:21 07/07/20 24 07/07/2024 urina lysis , dipst ick Unknown Analyte Normal = negati ve Not Available [facility] [address] [place] [address], [phone], 07/07/2024 17:16:21 07/07/20 24 07/07/2024 urina lysis , dipst ick Unknown Analyte Negati ve Not Available [facility] [address] [place] [address], [phone], 07/07/2024 17:16:21 07/07/20 24 07/07/2024 urina lysis , dipst ick Unknown Analyte Normal = Negati ve Not Available [facility] [address] [place] [address], [phone], 07/07/2024 17:16:21 07/07/20 24 07/07/2024 urina lysis , dipst ick Unknown Analyte Negati ve Not Available [facility] [address] [place] [address], [phone], 07/07/2024 17:16:21 07/07/20 24 07/07/2024 urina lysis , dipst ick Unknown Analyte Normal = Negati ve Not Available [facility] [address] [place] [address], [phone], 07/07/2024 17:16:21 07/07/20 24 07/07/2024 urina lysis , dipst ick Unknown Analyte Negati ve Not Available [facility] [address] [place] [address], [phone], 07/07/2024 17:16:21 07/07/2007/07/2024 urina lysis , dipst ick Unknown Analyte Normal = 1.010, 1.015, 1.020 Not Available [facility] [address] [place] [address], [phone], 07/07/2024 17:16:21 07/07/2007/07/2024 urina lysis , dipst ick Unknown Analyte 1.015 Not Available [facility] [address] [place] [address], [phone], 07/07/2024 17:16:21 07/07/20 24 07/07/2024 urina lysis , dipst ick Unknown Analyte Normal = Negati ve Not Available [facility] [address] [place] [address], [phone], 07/07/2024 17:16:21 07/07/20 24 07/07/2024 urina lysis , dipst ick Unknown Analyte Trace- intact Not Available [facility] [address] [place] [address], [phone], 07/07/2024 17:16:21 07/07/20 24 07/07/2024 urina lysis , dipst ick Unknown Analyte Normal = 6.5, 7.0, 7.5, 8.0 Not Available [facility] [address] [place] [address], [phone], 07/07/2024 17:16:21 07/07/20 24 07/07/2024 urina lysis , dipst ick Unknown Analyte 7.0 Not Available [address], [address], 07/07/2024 17:16:21 07/07/20 24 07/07/2024 urina lysis , dipst ick Unknown Analyte Normal = Negati ve Not Available [facility] [address] [place] [address], [phone], 07/07/2024 17:16:21 07/07/20 24 07/07/2024 urina lysis , dipst ick Unknown Analyte Negati ve Not Available [facility] [address] [place] [address], [phone], 07/07/2024 17:16:21 07/07/20 24 07/07/2024 urina lysis , dipst ick Unknown Analyte Normal = 0.2, 1.0 Not Available [facility] [address] [place] [address], [phone], 07/07/2024 17:16:21 07/07/20 24 07/07/2024 urina lysis , dipst ick Unknown Analyte 0.2 E.U./d L Not Available [facility] [address] [place] [address], [phone], 07/07/2024 17:16:21 07/07/20 24 07/07/2024 urina lysis , dipst ick Unknown Analyte Normal = Negati ve Not Available [facility] [address] [place] [address], [phone], 07/07/2024 17:16:21 07/07/20 24 07/07/2024 urina lysis , dipst ick Unknown Analyte Negati ve Not Available [facility] [address] [place] [address], [phone], 07/07/2024 17:16:21 07/07/20 24 07/07/2024 urina lysis , dipst ick Unknown Analyte Normal = Negati ve Not Available [facility] [address] [place] [address], [phone], 07/07/2024 17:16:21 07/07/20 24 07/07/2024 urina lysis , dipst ick Unknown Analyte Small Not Available [address] [facility] [address] [place] [address], [address], 07/07/2024 17:16:21 Result Notes None recorded. Problems Name Problem SNOMED Code Status Onset Date Resolution Date Notes Provider Name and Address Organization Details Recorded Time Hyperlipidemia 81044586 Active MONICA riley, [place] - [facility] 17:12:47 Hypothyroidism 04457609 Active MONICA BUCHANAN null, [place] - [facility] 17:13:00 Acute urinary tract infection 152947095 Active 2023 Nolan Diana NP [address] [place], [place], [address] , [place] - [facility] 17:32:32 Problem Notes None recorded. 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 Procedure Notes None recorded. Medical Equipment None Reported. Allergies No known drug allergies Medications Name Sig Start Date Stop Date Status Note LastModified by Organization Details LastModified Time alendronate 70 mg tablet PLEASE SEE ATTACHED FOR DETAILED DIRECTION S active Not Available Not Available No t Available clonazepam 0.5 mg tablet TAKE 1 TABLET BY MOUTH DAILY NEEDED FOR ANXIETY FOR 30 DAYS active Not Available Not Available No t Available sulfamethox azole 800 mg-trimetho prim 160 mg tablet TAKE 1 TABLET BY MOUTH TWICE A DAY FOR 4 DAYS 07/07 completed Not Available Not Available Not Available Macrobid 100 mg capsule Take 1 capsule every 12 hours by oral route with meal(s) for 7 days, for UTI. 2023 active Not Available Not Available Not Avai lable pantoprazol e 40 mg tablet,mahesh yed release TAKE 1 TABLET BY MOUTH DAILY active Not Available Not Available No t Available simvastatin 20 mg tablet TAKE 1 TABLET BY MOUTH AT BEDTIME active Not Available Not Available No t Available zolpidem 5 mg tablet TAKE 1 TABLET BY MOUTH EVERY DAY AT BEDTIME NEEDED FOR SLEEP FOR 30 DAYS 07/07 completed Not Available Not Available Not Available levothyroxi ne 88 mcg capsule TAKE 1 CAPSULE BY MOUTH EVERY DAY FOR 90 DAYS active Not Available Not Available No t Available Vitals Date Recorded Body height Body mass index (BMI) Body weight Oxygen saturation Oxygen saturation in Arterial blood by Pulse oximetry Heart rate Respiratory rate Body temperature Systolic blood pressure Diastolic blood pressure Provider Name and Address Organization Details Last Updated DateTime 4 154.94 cm 21.7 kg/m2 01674.1 2 g 100 % 100 % 63 /min 18 /min 98.1 [degF] 128 mm[Hg] 72 mm[Hg] MONICA Bailey [facility] 17:16:48 Social History Question Answer Notes LastModified by Organizat ion Details LastModified Time Tobacco Smoking Status Never Smoker [facility] 07/07/2024 17:13:08 What Is Your Level Of Alcohol Consumption? Occasional Information not available 07/07/2024 Do You Use Any Illicit Or Recreational Drugs? No Information not available 07/07/2024 Do You Or Have You Ever Used Any Other Forms Of Tobacco Or Nicotine? No Information not available 07/07/2024 Sex: Unknown Functional Status None recorded. Mental Status None recorded. Family History Nothing Reported. Medical History No medical history recorded. Gynecological HistoryNo gynecological history recorded. Obstetrics History GPAL:G 0 P 0 0 0 0 Past Encounters Encounter ID Performer Location Encounter Start Date Encounter Closed Date Diagnosis/Indication Diagnosis SNOMED-CT Code Diagnosis ICD10 Code Diagnosis Note [id number] [address] 02/11/2016 13:20:22 02/11/2016 14:50:00 [id number] [place] [id number] [address] 07/07/2024 17:03:05 07/07/2024 17:37:47 Acute urinary tract infection 489103125 N39.0 We recommend you get a repeat urinalysis in 2 weeks to ensure that any abnormalit ies have resolved. If urine abnormalit ies persist, you will likely need further testing or treatment. We will contact you within 3 to 5 days with the results of your lab test. If you have not heard back from us within that time frame, please feel free to contact our office regarding your results. Go to the Emergency Department immediatel y if your symptoms worsen or if you develop new symptoms that concern you. Drink plenty of fluids You should follow-up with your PCP in 4-5 days, or at any time if your condition does not improve or worsens. Any acute change should prompt a visit to the nearest Emergency Department . Health Concerns Section Related Observation LastModified by Organization Detai ls LastModified Time None Recorded Concern Status LastModified by Organization Details LastModified Time None Recorded Advance Directives Directive None Recorded Payers Encounter Date Sequence Insurance Name Policy Number Policy Ferguson Covered Member ID Ferguson Member ID Guarantor Name 02/11/2016 2 [place] [employer] Gui Hampton [id number] Regi Hampton 07/07/2024 1 [place] [facility] [employer] Regi Hampton [id number] Regi Hampton 07/07/[address] [facility] [employer] Gui Hampton [id number] Regi Hampton Notes Date Note Type Note Provider Name and Address Organization Details Recorded Time 4 text/html Urinary Complaint FemaleReported bypatient.source of patient informationInformation obtained from patient; Patient arrived at Urgent Care ambulatory UTI Symptoms:no blood in the urine; no vaginal discharge; no pain in the flank; no fever/chills; no incontinence; no recurrent UTI; no known exposure to STD;pain during urination;urgency;urinary frequency;recurrent UTI; cloudy urine Severity:moderate Duration:3 daysNotes:frequency and urgency x 3 day. denies any fever or fever with chills, denies any History of renal stone or bladder issues. Nolan Diana NP [address] [place], [address], [place] - [facility] 07/07/2024 17:38:28 OBGyn Episode No OBEpisode recorded.
--- NOTE | 2024-12-07 07:16 | MHC.OFFVIS ---
Intake Visit Reasons: Depression Jacque Burnett [phone] Allergies No Known Allergies [No Known Allergies*] Allergy (Verified 08/19/24 12:34) HPI HPI Depression Jacque Burnett [phone]: Details: History of Present Illness The patient is a 69-year-old female presenting with depression. She reports experiencing symptoms of depression accompanied by significant stress related to family disputes, ongoing litigation, and court cases. The patient has denied suicidal and homicidal ideation. The depression and stress have impacted her well-being, prompting her request for medication management. She does not describe any shortness of breath or chest pain. Previously, clonazepam was prescribed for her acute anxiety attacks with unspecific details about its use or effect. Review of Systems - Psychiatric: Reports depression and stress. Denies suicidal and homicidal ideation. - Cardiovascular/Respiratory: Denies chest pain or shortness of breath. PE: A+Ox3 no acute distress noted speech clear Plan 1. 2.5 months to evaluate treatment response and adjust medication as necessary.: Discussion Notes After discussing the patient's symptoms of depression and associated stress, I proposed starting her on sertraline at a low dose of 25 mg, recognizing it may take up to two months for full effects to manifest. A relative or close associate might notice improvements within the first month. The patient was advised to begin the medication at night to mitigate side effects by sleeping through them. The option of therapy was broached, but the patient expressed no interest at this time. She is aware she can reach out via the portal if any concerns arise. A follow-up will be conducted in roughly 2.5 months. Patient Instructions - Take sertraline 25 mg at night, once daily, as prescribed. - Use clonazepam only as needed for acute anxiety episodes. - Be aware of potential side effects and report any concerns via the portal. - Plan to follow up in approximately 2.5 months. - Reach out if symptoms worsen or if there are concerns before the next scheduled visit. [facility] Medical History (Updated 12/07/24 @ 07:18 by ZEFERINO Horn) Osteoporosis Ascending aorta dilatation Gallbladder polyp Social History Housing: House Patient Tobacco Use Status: Former Tobacco user e-Cigarette/Vaping Use: Never Used Second Hand Smoke Exposure: No service: No Current occupational status: retired Cognitive needs: No Hearing needs: No Vision needs: No Telehealth Telehealth Telehealth Platform: [employer] Location of provider rendering services: practice address Location of patient: address on file Patient Identification confirmed using: Name, : Yes Telehealth method: video Patient verbally consented to treatment: Yes Patient verbally consented to billing insurance company: Yes Patient informed of any privacy concerns related to visit: Yes Minutes spent on Phone/Video with Pt.: 10 Assessment & Plan Assessment & Plan (1) Depression with anxiety: Code(s): F41.8 - Other specified anxiety disorders Category: Medical Plan . Medications: New sertraline 25 mg PO DAILY 30 tabs 2RF Coding Level of Care Code Tele Est Pt Level 3 (92408) Diagnoses Depression with anxiety F41.8
== END 2024-12-07 07:42 | disposition home or self-care (01) ==
PROVIDERS: PCP Nurse Practitioner Family; Visit Provider Nurse Practitioner Family
DX: F41.8 Other specified anxiety disorders (principal)

== ENCOUNTER 2025-02-25 12:55 | Outpatient (AMB) | payer MEDICARE, BC, SELFPAY ==
[2025-02-25 13:02] VITALS: BP 122/78; PULSE 62; O2SAT 97; BMI 23.0
--- NOTE | 2025-02-25 13:02 | A.OFFPC_ITS ---
Vital Signs 02/25/25 13:02 Height 5 ft 1 in Weight 121 lb 8 oz BMI 23.0 BP 122/78 Blood Pressure Location Rt brachial Position Sitting Pulse 62 Pulse Source Pulse Oximeter Pulse Oximetry (%) 97 Oxygen Delivery Method Room Air Intake Visit Reasons: 6m follow up Allergies No Known Allergies [No Known Allergies*] Allergy (Verified 02/25/25 13:12) Tobacco use date assessed: 02/25/25 Fall risk assessment: No Falls in past year Last assessed Fall Risk: 02/25/25 Dental Screening Dental Screen Date: 02/25/25 Did you have a dental visit in the last 12 months?: Yes Did you have a dental problem in the last 6 months where you did not have access to dental care?: No Was dental information given to patient?: Patient has dentist HPI 6m follow up HPI Details Chief Complaint The patient is here for a generalized follow-up appointment with a focus on her bilirubin levels. History of Present Illness The patient is a 70-year-old female presenting for a general follow-up with a primary focus on monitoring her bilirubin levels. She denies any abdominal disc omfort, nausea, or vomiting, indicating an overall feeling of wellness. The patient has a reported history of familial loss, including the of her sister approx five years ago and her mother approx two years ago, which have contributed to ongoing anxiety issues. No si or hi, does not want another therapist currently. Additionally, she has denied any concerns related to bowel changes. Social History - The patient reports ongoing family iss ues, including the loss of her sister five years ago and her mother two years ago. Health Maintenance Review of Systems - Gastrointestinal: Denies abdominal aissatou n, nausea, and vomiting; denies stool- related issues. - Psychiatric: Reports feeling well but acknowledges anxiety related to family issues. Physical Exam General: Cooperative, healthy appearing, comfortable, no acute distress and well developed Orientation: Patient oriented x3 Limitations: No limitations Head: Normal to inspection Ears: Hearing grossly normal bilaterally Nose: Normal external nose present Face and sinus: Normal facial exam Eyes: Appearance normal, both eyes and all related structures Neck: Normal visual inspection and Yes full ROM Respiratory: Normal respiratory effort and able to speak in complete sentences. Clear to auscultation bilaterally Cardiovascular: Regular rate and rhythm. Normal S1 and S2 GI: Normal to inspection. Soft to palpation and nontender Skin: No rashes or lesions noted Neuro: Patient oriented x3 Extremities: Normal to inspection Results - Labs: Mention of bilirubin levels bein g monitored -imaging: see abd US/hida scan Plan I focused on the patient's elevated bilirubin levels, ensuring continued monitoring and correlation with clinical symptoms which she currently denies. In connection to her anxiety, linked to the familial losses, potential therapeutic support options were discussed to provide emotional health guidance. Routine monitoring and support will persist, emphasizing continued communication regarding her concerns. Discussion Notes I thoroughly discussed with the patient the importance of monitoring her bilirubin levels and assessing her overall well-being. I highlighted the significance of paying attention to any new symptoms that could arise and ensuring prompt communication if they do. The impact of her family issues on her anxiety was acknowledged, and potential support strategies were explored. I encouraged her to openly discuss emotional challenges and possible coping mechanisms. Patient Instructions - Continue monitoring any new symptoms s uch as abdominal pain or changes in stool. - Report any concerns or new symptoms im mediately. - Consider exploring support options for managing anxiety related to family losses. - Maintain open communication about her health and emotional well-being. [facility] Medical History Osteoporosis Ascending aorta dilatation Gallbladder polyp Social History Housing: House Patient Tobacco Use Status: Former Tobacco user e-Cigarette/Vaping Use: Never Used Second Hand Smoke Exposure: No service: No Current occupational status: retired Cognitive needs: No Hearing needs: No Vision needs: No Questionnaire PHQ-9 Over the last 2 weeks, how often have you been bothered by any of the following problems? 1. Little interest or pleasure in doing things: several days 2. Feeling down, depressed, or hopeless: several days 3. Trouble falling or staying asleep, or sleeping too much: several days 4. Feeling tired or having little energy: several days 5. Poor appetite or overeating: several days 6. Feeling bad about yourself - or that you are a failure or have let yourself or your family down: several days 7. Trouble concentrating on things, such as reading the newspaper or watching television: several days 8. Moving or speaking so slowly that other people could have noticed. Or the opposite - being so fidgety or restless that you have been moving around a lot more than usual: not at all 9. Thoughts that you would be better off or of hurting yourself in some way: not at all Total score: 7 Depression Screening Interpretation: Negative Depression Screening Done: Yes 96687 - PHQ-9 Billing: Yes Source: Developed by Drs. Bernardo Aden, Ana Cedeno, Remigio Tucker and colleagues, with an educational hanh from [employer] Thrive Questionnaire Date Thrive assessed: 02/25/25 I am a: Patient What is your living situation today?: I have a steady place to live Within the past 12 months, did the food you bought not last and you didn't have the money to get more?: Never true Within the past 12 months, did you worry whether your food would run out before you got money to buy more?: Never true Do you have trouble paying for medicines?: No Do you have trouble getting transportation to medical appointments?: No Do you have trouble paying your heating and electricity bill?: No Do you have trouble taking care of your child, family member or friend?: No Do you have trouble with day-to-day activities such as bathing, preparing meals, shopping, managing finances, etc.?: No Are you currently unemployed and looking for a job?: No Are you interested in more education?: Yes Please select the resources that you would like help with: None Currently or been in a relationship where the following occur: No concerns reported THRIVE Score: 0 AUDIT C Alcohol Use Questionnaire (AUDIT-C) 1. How often do you have a drink containing alcohol?: Monthly or less 2. How many drinks containing alcohol do you have on a typical day when you are drinking?: 1 or 2 3. How often do you have six or more drinks on one occasion?: Never Total Score: 1 Score Reviewed/Action Taken: Yes TEMITOPE-7 AMB Questionnaire TEMITOPE-7 Date TEMITOPE - 7 assessed: 02/25/25 Feeling nervous, anxious, or on edge: 1 = Several days Not being able to stop or control worryin = Several days Worrying too much about different things: 1 = Several days Trouble relaxin = Several days Being so restless that it is hard to sit still: 1 = Several days Becoming easily annoyed or irritable: 2 = More than half the days Feeling afraid as if something awful might happen: 1 = Several days Total TEMITOPE-7 score (0-4 normal; 5-9 mild; 10-14 moderate; 15-21 severe): 8 Source: Developed by Drs. Bernardo Aden, Ana Cedeno, Remigio Tucker and colleagues, with an educational hanh from [employer] TEMITOPE-7 Assessment Billing TEMITOPE-7 Assessment Tool: TEMITOPE-7 Assessment 84138 Physical exam (Primary Care) Vital Signs: Last Vital Signs Pulse 62 02/25/25 13:02 BP 122/78 02/25/25 13:02 Pulse Ox 97 02/25/25 13:02 Oxygen Delivery Method Room Air 02/25/25 13:02 BMI result Body Mass Index 23.0 Tobacco/Smoking Status: Tobacco use Status Tobacco use date assessed 02/25/25 02/25/25 13:13 Patient Tobacco Use Status Former Tobacco user 02/25/25 13:02 e-Cigarette/Vaping Use Never Used 02/25/25 13:02 PHQ-9: PHQ-9 Score PHQ-9: Total score 7 02/25/25 13:13 Depression Screening Interpretation: Negative Thrive Assessment: Date of Thrive Assessment Date Thrive assessed 02/25/25 02/25/25 13:13 Currently or been in a relationship where the following occur: No concerns reported Coding Level of Care Code Est Pt Level 3 (45483) Diagnoses Elevated bilirubin R17 Depression with anxiety F41.8 Additional Codes TEMITOPE-7 Assessment Billing - TEMITOPE-7 Assessment Tool: TEMITOPE-7 Assessment 78034 ([id number]) PHQ-9 - 11660 - PHQ-9 Billing: Yes ([id number]) Assessment & Plan Assessment & Plan (1) Elevated bilirubin: Code(s): R17 - Unspecified jaundice Category: Medical (2) Depression with anxiety: Code(s): F41.8 - Other specified anxiety disorders Category: Medical Plan . Orders: Orders Comprehensive Fletcher. Panel Fast Today R17 - Unspecified jaundice TSH reflex Free T4 Today R17 - Unspecified jaundice UA CC w/rflx Micro + Cult Today R17 - Unspecified jaundice Lipid Panel Today R17 - Unspecified jaundice Complete Blood Count Auto Diff Today R17 - Unspecified jaundice Haptoglobin Today R17 - Unspecified jaundice Lactate Dehydrogenase Today R17 - Unspecified jaundice Reticulocyte Count Today R17 - Unspecified jaundice Medications: Refilled clonazepam 0.5 mg PO DAILY 30 days PRN 30 tabs 2RF anxiety
--- OUTSIDE RECORDS SUMMARY | 2025-02-25 15:11 | XMS_ITS | Data Portability ---
Author Organization MIGUELINA Tejeda s, [address] Address [address] [place] [address] Assessment No assessment recorded. Plan of Treatment Reminders Order Date Submit Date Provider Last Modified By Organization Details Last Modified Time Details Appointments None recorded. Lab urinalysis , dipstick 2023 024 [email or web address] [facility], [address] [place], [address], 17:32:47 culture, urine 2023 [place] [facility], [address] [place] [address], [place], [address], 22:05:58 Referral None recorded. Procedures None recorded. Surgeries None recorded. Imaging None recorded. Medication Orders Macrobid 100 mg capsule 2023 024 [place] [id number], [address] [facility], [place], [address], 17:37:16 Patient TargetsNo targets recorded. Patient InstructionsNo instructions recorded. Reason for Referral None Reported. Results Created Date Observation Date Name Description Value Unit Range Abnormal Flag Note LastModifiedBy Organization Detail LastModifiedTime 07/07/2007/08/2024 URINE CULTU RE, B[place] NE urine culture, routine FINAL REPORT Not Available [facility] ([facility]) [address] [facility], [place], [address], 07/08/2024 22:05:58 07/07/2007/08/2024 URINE CULTU RE, ROUTI NE result 1 NO GROWTH Not Available [facility] ([facility]) [address] [facility], [place], [address], 07/08/2024 22:05:58 07/07/20 24 07/07/2024 urina lysis , dipst ick Unknown Analyte Normal = light yellow Not Available [facility] [address] [place] [address], [phone], 07/07/2024 17:16:21 07/07/20 24 07/07/2024 urina lysis , dipst ick Unknown Analyte Yellow Not Available [facility] [address] [place] [address], [phone], 07/07/2024 17:16:21 07/07/20 24 07/07/2024 urina lysis , dipst ick Unknown Analyte Normal = clear Not Available [facility] [address] [place] [address], [phone], 07/07/2024 17:16:21 07/07/20 24 07/07/2024 urina lysis , dipst ick Unknown Analyte Clear Not Available [facility] [address] [place] [address], [phone], 07/07/2024 17:16:21 07/07/20 24 07/07/2024 urina lysis , dipst ick Unknown Analyte Normal = negati ve Not Available [facility] [address] [place] [address], [address], 07/07/2024 17:16:21 07/07/20 24 07/07/2024 urina lysis , dipst ick Unknown Analyte Negati ve Not Available [facility] [address] [place] [address], [phone], 07/07/2024 17:16:21 07/07/20 24 07/07/2024 urina lysis , dipst ick Unknown Analyte Normal = Negati ve Not Available [facility] [address] [place] [address], [phone], 07/07/2024 17:16:21 07/07/20 24 07/07/2024 urina lysis , dipst ick Unknown Analyte Negati ve Not Available [facility] [address] [place] [address], [address], 07/07/2024 17:16:21 07/07/20 24 07/07/2024 urina lysis , dipst ick Unknown Analyte Normal = Negati ve Not Available [facility] [address] [place] [address], [address], 07/07/2024 17:16:21 07/07/20 24 07/07/2024 urina lysis , dipst ick Unknown Analyte Negati ve Not Available [facility] [address] [place] [address], [address], 07/07/2024 17:16:21 07/07/2007/07/2024 urina lysis , dipst ick Unknown Analyte Normal = 1.010, 1.015, 1.020 Not Available [facility] [address] [place] [address], [address], 07/07/2024 17:16:21 07/07/2007/07/2024 urina lysis , dipst ick Unknown Analyte 1.015 Not Available [facility] [address] [place] [address], [phone], 07/07/2024 17:16:21 07/07/20 24 07/07/2024 urina lysis , dipst ick Unknown Analyte Normal = Negati ve Not Available [facility] [address] [place] [address], [address], 07/07/2024 17:16:21 07/07/20 24 07/07/2024 urina lysis , dipst ick Unknown Analyte Trace- intact Not Available [facility] [address] [place] [address], [phone], 07/07/2024 17:16:21 07/07/20 24 07/07/2024 urina lysis , dipst ick Unknown Analyte Normal = 6.5, 7.0, 7.5, 8.0 Not Available [facility] [address] [place] [address], [address], 07/07/2024 17:16:21 07/07/20 24 07/07/2024 urina lysis , dipst ick Unknown Analyte 7.0 Not Available [address], [address], 07/07/2024 17:16:21 07/07/20 24 07/07/2024 urina lysis , dipst ick Unknown Analyte Normal = Negati ve Not Available [facility] [address] [place] [address], [address], 07/07/2024 17:16:21 07/07/20 24 07/07/2024 urina lysis , dipst ick Unknown Analyte Negati ve Not Available [facility] [address] [place] [address], [address], 07/07/2024 17:16:21 07/07/20 24 07/07/2024 urina lysis , dipst ick Unknown Analyte Normal = 0.2, 1.0 Not Available [facility] [address] [place] [address], [address], 07/07/2024 17:16:21 07/07/20 24 07/07/2024 urina lysis , dipst ick Unknown Analyte 0.2 E.U./d L Not Available [facility] [address] [place] [address], [address], 07/07/2024 17:16:21 07/07/20 24 07/07/2024 urina lysis , dipst ick Unknown Analyte Normal = Negati ve Not Available [facility] [address] [place] [address], [address], 07/07/2024 17:16:21 07/07/20 24 07/07/2024 urina lysis , dipst ick Unknown Analyte Negati ve Not Available [facility] [address] [place] [address], [address], 07/07/2024 17:16:21 07/07/20 24 07/07/2024 urina lysis , dipst ick Unknown Analyte Normal = Negati ve Not Available [facility] [address] [place] [address], [phone], 07/07/2024 17:16:21 07/07/20 24 07/07/2024 urina lysis , dipst ick Unknown Analyte Small Not Available [address] [facility] [address] [place] [address], [address], 07/07/2024 17:16:21 Result Notes None recorded. Problems Name Problem SNOMED Code Status Onset Date Resolution Date Notes Provider Name and Address Organization Details Recorded Time Hyperlipidemia 61886375 Active MONICA riley, [place] - [facility] 17:12:47 Hypothyroidism 49068399 Active MONICA BUCHANAN null, [place] - [facility] 17:13:00 Acute urinary tract infection 856264919 Active 2023 Nolan Diana NP [address] [place], [place], [address] , [place] - [facility] 17:32:32 Problem [...] Updated DateTime 4 154.94 cm 21.7 kg/m2 65492.1 2 g 100 % 100 % 63 [...] SNOMED-CT Code Diagnosis ICD10 Code Diagnosis Note [id number] [place] [address] 02/11/2016 13:20:22 02/11/2016 14:50:00 [id number] [place] [address] [address] 07/07/2024 17:03:05 07/07/2024 17:37:47 Acute urinary tract infection 885852212 N39.0 We recommend you get a repeat [...] 2 [place]: [employer] Gui Hampton [id number] Regi Hampton 07/07/2024 1 MEDICARE B-[place]: [facility] [employer] Regi Hampton [id number] Regi Hampton 07/07/2024 2 [facility] [employer] Gui Hampton [id number] Regi Hampton Notes Date Note Type Note [...] Diana NP [address] [place], [address], [place] - [facility] 07/07/2024 17:38:28 OBGyn Episode No OBEpisode recorded.
--- OUTSIDE RECORDS SUMMARY | 2025-02-25 15:11 | XMS_ITS | Clinical Summary ---
Author Organization [address] [place] [address] Address [address] [place] [address] Phone Care Team Providers Care Dairy Consultant Name Role Phone JerryMau musa Katerina SOTO Primary Care Provider [phone] Allergies No known active allergies Medications alendronate (FOSAMAX) 70 mg tablet Take 1 tablet (70 mg total) by mouth 1 (one) time per week. 12/19/2024 Active amoxicillin-cla vulanate (AUGMENTIN) 500-125 mg per tablet 12/29/2024 Active atorvastatin (LIPITOR) 20 mg tablet Take 1 tablet (20 mg total) by mouth. at bedtime. Active clonazePAM (KlonoPIN) 0.5 mg tablet TAKE 1 TABLET BY MOUTH DAILY NEEDED FOR ANXIETY FOR 30 DAYS 12/19/2024 Active estradioL (ESTRACE) 0.01 % (0.1 mg/gram) vaginal cream Insert 1 g into the vagina 2 (two) times a week. 11/24/2024 Active levothyroxine sodium (TIROSINT) 88 mcg capsule Take 1 capsule (88 mcg total) by mouth 1 (one) time each day. 10/23/2024 Active sertraline (ZOLOFT) 25 mg tablet Take 1 tablet (25 mg total) by mouth 1 (one) time each day. 12/07/2024 Active Active Problems Problem Noted Date Diagnosed Date Cholesterol polyp of gallbladder 12/31/2024 Epigastric pain 12/31/2024 Encounters Date Type Department Care Team Description 12/31/2024 1:00 PM EST Consult General Surgery [facility] [address] [place] [address] Jovi Albright MD Epigastric pain (Primary Dx); Cholesterol polyp of gallbladder from Last 3 Months Social History Tobacco Use Types Packs/Day Years Used Date Smoking Tobacco: Never Assessed Comments Unknown Sex and Gender Information Value Date Recorded Sex Assigned at Not on file Legal Sex Female 7:47 AM EST Gender Identity Not on file Sexual Orientation Not on file Last Filed Vital Signs Vital Sign Reading Time Taken Comments Blood Pressure 126/77 12/31/2024 12:57 PM EST Pulse 71 12/31/2024 12:57 PM EST Temperature 36.5 ??C (97.7 ??F) 12/31/2024 12:[address] Respiratory Rate - - Oxygen Saturation - - Inhaled Oxygen Concentration - - Weight 52.8 kg (116 lb 8 oz) 12/31/2024 12:57 PM EST Height 157.5 cm (5' 2 ) 12/31/2024 12:57 PM EST Body Mass Index 21.31 12/31/2024 12:57 PM EST Plan of Treatment Upcoming Encounters Date Type Department Care Team (Late st Contact Info) Description 04/01/2025 8:00 AM EDT Office Visit General Surgery - [place] [address] [place] [phone] Jovi Albright MD [address] [address] Health Maintenance Due Date Last Done Comments Breast Cancer Screening 1955 DTaP,Tdap,and Td Vaccines (1 - Tdap) 02/11/1972 Pneumococcal Vaccine: 50+ Years (1 of 1 - PCV) 2003 Zoster Vaccines (1 of 2) 2003 Colorectal Cancer Screening: Colonoscopy 10/07/2022 Depression Screening 10/07/2022 Falls Risk Assessment 10/07/2022 Hepatitis C Screening 10/07/2022 Medicare Annual Wellness Visit 10/07/2022 Osteoporosis Screening (Bone Density Screening) 10/07/2022 Social Influencers of Health Screening 10/07/2022 COVID-19 Vaccine (3 - 2023-2 5 season) 2024 12/29/2020, 12/01/2020 Influenza Vaccine (Season Ended) 2025 RSV Immunization Adult Patients (1 - 1-dose 75+ series) 02/11/2028 HIB [...] patient's age to complete this topic Meningococcal B Vaccine Aged Out No l onger eligible based on patient's age to complete this topic RSV Immunization Patients Under 20 months Aged Out No longer eligible b ased on patient's age to complete this topic Varicella Vaccines Aged Out No longer eligible based on patient's age to complete this topic Insurance MEDICARE Care Teams Dairy Consultant Relationship Specialty Start Date End Date Mau Ness NP [address] [place], [place] PCP - General Family Medicine 12/24/24
== END 2025-02-25 13:57 | disposition home or self-care (01) ==
LOC: HO.HMCC 12:55
PROVIDERS: PCP Nurse Practitioner Family; Visit Provider Nurse Practitioner Family
DX: R17 Unspecified jaundice (principal); F41.8 Other specified anxiety disorders

== ENCOUNTER → 2025-02-25 12:55 | Outpatient (BNVA) | payer MEDICARE, BC, SELFPAY | PROVIDERS: PCP Nurse Practitioner Family; Visit Provider Nurse Practitioner Family | DX: R17 Unspecified jaundice (principal); F41.8 Other specified anxiety disorders | CPT/HCPCS: 96127; 99212 ==

== ENCOUNTER 2025-08-25 08:01 | Outpatient (REF) | payer MEDICARE, BC, SELFPAY ==
--- OUTSIDE RECORDS SUMMARY | 2025-08-25 08:04 | XMS_ITS | Clinical Summary ---
Author Organization [address] [facility] Address [address] [place] [address] Phone Care Team Providers Care Bilingual Teacher Name Role Phone Jerrydimple Mau Borges NP Primary Care Provider [phone] Allergies No known active allergies Medications alendronate [...] polyp of gallbladder 12/31/2024 Epigastric pain 12/31/2024 Social History Tobacco Use Types Packs/Day Years [...] 71 12/31/2024 12:57 PM EST Temperature 36.5 C (97.7 F) 12/31/2024 12:57 PM EST Respiratory Rate - - Oxygen Saturation - - Inhaled Oxygen Concentration - - Weight 52.8 kg (116 lb 8 oz) 12/31/2024 12:57 PM EST Height 157.5 cm (5' 2 ) 12/31/2024 12:57 PM EST Body Mass Index 21.31 12/31/2024 12:57 PM EST Plan of Treatment Health Maintenance Due Date Last Done Comments Breast Cancer Screening 1955 DTaP,Tdap,and Td Vaccines (1 - Tdap) 02/11/1972 Pneumococcal Vaccine: 50+ Years (1 of 1 - PCV) 2003 Zoster Vaccines (1 of 2) 2003 Falls Risk Assessment 10/07/2022 Hepatitis C Screening 10/07/2022 Medicare Annual Wellness Visit 10/07/2022 Osteoporosis Screening (Bone Density Screening) 10/07/2022 Social Influencers of Health Screening 10/07/2022 Depression Screening 11/04/2024 COVID-19 Vaccine (3 - 2024-2 6 season) 2025 12/29/2020, 12/01/2020 Influenza Vaccine (#1) 2025 RSV Immunization Adult Patients (1 - 1-dose 75+ series) 02/11/2028 Colorectal Cancer Screening: Colonoscopy 06/23/2035 06/23/2025 HIB Vaccines Aged Out No longer eligi [...] on patient's age to complete this topic Procedures Procedure Name Priority Date/Time Associated Diagnosis Comments EXTERNAL COLONOSCOPY REPORT Routine 06/23/2025 9:51 AM EDT from Last 3 Months Results * External Colonoscopy Report (06/23/2025 9:51 AM EDT) Anatomical Region Laterality Modality Endoscopy us Historical Provider GI~PROCEDURE ORDERABLES F inal Result from Last 3 Months Insurance MEDICARE Care Teams Bilingual Teacher Relationship Specialty Start Date End Date Mau Ness NP [address] [facility] [place] PCP - General Family Medicine 12/24/24
--- OUTSIDE RECORDS SUMMARY | 2025-08-25 08:04 | XMS_ITS | Data Portability ---
Author Organization [facility], [address] Address [address] [place] [address] Assessment No assessment recorded. Plan of Treatment Reminders Order Date Submit Date Provider Last Modified By Organization Details Last Modified Time Details Appointments None recorded. Lab urinalysis , dipstick 2023 024 fijaz3 [facility], [address] [place], [address], 17:32:47 culture, urine 2023 024 INTERLOCHEN [facility], [address] [place] [address], [place], [address], 22:05:58 Referral None recorded. Procedures None recorded. Surgeries None recorded. Imaging None recorded. Medication Orders Macrobid 100 mg capsule 2023 024 INTERLOCHEN [id number], [address] [facility] [address], [place], [address], 17:37:16 Patient TargetsNo targets recorded. Patient InstructionsNo instructions recorded. Reason for Referral None Reported. Results Created Date Observation Date Name Description Value Unit Range Abnormal Flag Note LastModifiedBy Organization Detail LastModifiedTime 07/07/2007/08/2024 URINE CULTU RE, [place] NE urine culture, routine FINAL REPORT Not Available [facility] ([facility]) [address] [facility], [place], [address], 07/08/2024 22:05:58 07/07/2007/08/2024 URINE CULTU RE, ROUTI NE result 1 NO GROWTH Not Available [facility] ([facility]) [address] [facility], [place], [address], 07/08/2024 22:05:58 07/07/20 24 07/07/2024 urina lysis , dipst ick Unknown Analyte Normal = light yellow Not Available [facility] [address] [place] [address], [address], 07/07/2024 17:16:21 07/07/20 24 07/07/2024 urina lysis , dipst ick Unknown Analyte Yellow Not Available [facility] [address] [place] [address], [address], 07/07/2024 17:16:21 07/07/20 24 07/07/2024 urina lysis , dipst ick Unknown Analyte Normal = clear Not Available [facility] [address] [place] [address], [address], 07/07/2024 17:16:21 07/07/20 24 07/07/2024 urina lysis , dipst ick Unknown Analyte Clear Not Available [facility] [address] [place] [address], [address], 07/07/2024 17:16:21 07/07/20 24 07/07/2024 urina lysis , dipst ick Unknown Analyte Normal = negati ve Not Available [facility] [address] [place] [address], [address], 07/07/2024 17:16:21 07/07/20 24 07/07/2024 urina lysis , dipst ick Unknown Analyte Negati ve Not Available [facility] [address] [place] [address], [address], 07/07/2024 17:16:21 07/07/20 24 07/07/2024 urina lysis , dipst ick Unknown Analyte Normal = Negati ve Not Available [facility] [address] [place] [address], [phone], 07/07/2024 17:16:21 07/07/20 24 07/07/2024 urina lysis , dipst ick Unknown Analyte Negati ve Not Available [facility] [address] [place] [address], [address], 07/07/2024 17:16:21 07/07/2007/07/2024 urina lysis , dipst ick Unknown Analyte Normal = Negati ve Not Available [facility] [address] [place] [address], [address], 07/07/2024 17:16:21 07/07/2007/07/2024 urina lysis , dipst ick Unknown Analyte Negati ve Not Available [facility] [address] [place] [address], [address], 07/07/2024 17:16:21 07/07/2007/07/2024 urina lysis , dipst ick Unknown Analyte Normal = 1.010, 1.015, 1.020 Not Available [facility] [address] [place] [address], [address], 07/07/2024 17:16:21 07/07/2007/07/2024 urina lysis , dipst ick Unknown Analyte 1.015 Not Available [facility] [address] [place] [address], [phone], 07/07/2024 17:16:21 07/07/2007/07/2024 urina lysis , dipst ick Unknown Analyte Normal = Negati ve Not Available [facility] [address] [place] [address], [address], 07/07/2024 17:16:21 07/07/20 24 07/07/2024 urina lysis , dipst ick Unknown Analyte Trace- intact Not Available [facility] [address] [place] [address], [phone], 07/07/2024 17:16:21 07/07/20 24 07/07/2024 urina lysis , dipst ick Unknown Analyte Normal = 6.5, 7.0, 7.5, 8.0 Not Available [facility] [address] [place] [address], [phone], 07/07/2024 17:16:21 07/07/20 24 07/07/2024 urina lysis , dipst ick Unknown Analyte 7.0 Not Available [facility] [address], [address], 07/07/2024 17:16:21 07/07/20 24 07/07/2024 urina lysis , dipst ick Unknown Analyte Normal = Negati ve Not Available [facility] ie [address], [address], 07/07/2024 17:16:21 07/07/20 24 07/07/2024 urina lysis , dipst ick Unknown Analyte Negati ve Not Available [facility] [address] [place] [address], [address], 07/07/2024 17:16:21 07/07/20 24 07/07/2024 urina lysis , dipst ick Unknown Analyte Normal = 0.2, 1.0 Not Available [facility] ie [address], [address], 07/07/2024 17:16:21 07/07/20 24 07/07/2024 urina lysis , dipst ick Unknown Analyte 0.2 E.U./d L Not Available [facility] [address] [place] [address], [phone], 07/07/2024 17:16:21 07/07/20 24 07/07/2024 urina lysis , dipst ick Unknown Analyte Normal = Negati ve Not Available [facility] [address] [place] [address], [address], 07/07/2024 17:16:21 07/07/20 24 07/07/2024 urina lysis , dipst ick Unknown Analyte Negati ve Not Available [facility] [address] [place] [address], [address], 07/07/2024 17:16:21 07/07/20 24 07/07/2024 urina lysis , dipst ick Unknown Analyte Normal = Negati ve Not Available [facility] [address] [place] [address], [phone], 07/07/2024 17:16:21 07/07/20 24 07/07/2024 urina lysis , dipst ick Unknown Analyte Small Not Available [address] [facility] [address] [place] [address], [phone], 07/07/2024 17:16:21 Result Notes None recorded. Problems Name Problem SNOMED Code Status Onset Date Resolution Date Notes Provider Name and Address Organization Details Recorded Time Hyperlipidemia 39206725 Active MONICA riley, [place] - [facility] 17:12:47 Hypothyroidism 94477717 Active MONICA rilye, PA - [facility] 17:13:00 Acute urinary tract infection 957999245 Active 2023 Nolan Diana NP [address] [place], [place], [address] , [place] - [facility] 17:32:32 Problem Notes None recorded. 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 [...] Heart rate Respiratory rate Body temperature Systolic And Diastolic Provider Name and Address Organization Details Last Updated DateTime 4 154.94 cm 21.7 kg/m2 74200.1 2 g 100 % 100 % 63 /min 18 /min 98.1 [degF] 128/72 mm[Hg] MONICA DEWAYNE PA - [facility] 4 17:16:48 Social History None recorded. Functional Status Question Answer Note LastModified by Organizat ion Details LastModified Time Do you use any illicit or recreational drugs? No Information not available 07/07/2024 Do you or have you ever used any other forms of tobacco or nicotine? No Information not available 07/07/2024 What is your level of alcohol consumption? Occasional Information not available 07/07/2024 Mental Status None recorded. Family History Nothing Reported. Medical History No medical history recorded. Gynecological HistoryNo gynecological history recorded. Obstetrics History GPAL:G 0 P 0 0 0 0 Past Encounters Encounter ID Performer Location Encounter Start Date Encounter Closed Date Diagnosis/Indication Diagnosis SNOMED-CT Code Diagnosis ICD10 Code Diagnosis IMO Codes Diagnosis Note [id number] [facility] [address] [place] [address] 02/11/2016 13:20:22 02/11/2016 14:50:00 [id number] [facility] [address] [address] 07/07/2024 17:03:05 07/07/2024 17:37:47 Acute urinary tract infection 989704739 N39.0 We recommend you get a repeat [...] Recorded Advance Directives Directive None Recorded Payers Insurance Date Sequence Insurance Name Policy Number Policy Ferguson Covered Member ID Ferguson Member ID Guarantor Name 07/07/2024 1 [place] [employer] Regi Hampton [id number] Regi Hampton 07/07/2024 2 [place] [employer] Gui Hampton [id number] Regi Memo Notes Date Note Type Note Provider Name and Address Organization Details Recorded Time 07/07/2024 text/html Urinary Complain t FemaleReported by PatientUrinary problemsFor uti symptoms, patient reportspain during urination,urgency,urina ry frequency, andrecurrent utibut reportsno blood in the urine,no vaginal discharge,no pain in the flank,no fever/chills,no incontinence,no recurrent uti, andno known exposure to std(cloudy urine). For source of patient information, patient reportsinformation obtained from patientandpatient arrived at urgent care ambulatory. For severity, patient reportsmoderate. For duration, patient reports3 days.frequency and urgency x 3 day. denies any fever or fever with chills, denies any History of renal stone or bladder issues. Nolan Diana NP [address] [place], [address], [place] - [facility] 07/07/2024 17:38:28 OBGyn Episode No OBEpisode recorded.
--- OUTSIDE RECORDS SUMMARY | 2025-08-25 08:04 | XMS_ITS | Clinical Summary ---
Author Organization [facility] Address [address] [facility] [address] [place] [address] Phone Care Team Providers Care Ice Sculptor Name Role Phone Mau Ness CENSUS ENUMERATOR Primary Care Provider + Medications levothyroxine (SYNTHROID) 88 MCG tablet 1 tablet on an empty stomach in the morning Orally Once a day Active atorvastatin (LIPITOR) 20 MG tablet Orally Once a day Active Immunizations Immunization Administration Dates Next Due COVID-19 (Pre-08/26) Moderna Vaccine, mRNA, PF 0 12/29/2020,12/01/2020 Family History Medical History Relation Comments Cancer Father 2 CV disease Mother 2 Relation Status Comments Father 1 Father 2 Mother 1 Alive Mother 2 Social History Tobacco Use Types Packs/Day Years Used Date Smoking Tobacco: Never Assessed Education Answer Date Recorded Are you interested in more education? Not on inessa e 03/01/2023 Are you concerned about learning? Not on file 03/01/2023 No 03/01/2023 No 03/01/2023 Digital Access Answer Date Recorded No 03/30/2023 No 03/30/2023 Reliable internet access at home? Not on file 03/30/2023 Device with a working camera? Not on file Comments Unknown Sex and Gender Information Value Date Recorded Sex Assigned at Not on file Legal Sex Female 9:59 PM EDT Gender Identity Not on file Sexual Orientation Not on file Last Filed Vital Signs Vital Sign Reading Time Taken Comments Blood Pressure 117/68 01/16/2017 2:07 AM EDT Pulse - - Temperature - - Respiratory Rate - - Oxygen Saturation - - Inhaled Oxygen Concentration - - Weight 63.5 kg (140 lb) 01/16/2017 2:07 AM EDT Height 154.9 cm (5' 1 ) 01/16/2017 2:07 AM EDT Body Mass Index 26.45 01/16/2017 2:07 AM EDT Plan of Treatment Health Maintenance Due Date Last Done Comments LIPID PANEL 1953 TSH LEVEL 1953 DEPRESSION SCREENING 1965 SMOKING Hx and SMOKELESS TOBACCO SCREENING 1966 HEPATITIS C SCREENING 1971 MAMMOGRAM 1993 COLOGUARD 1998 COLONOSCOPY 1998 COLORECTAL CANCER SCREENING 1998 FIT TEST 1998 FOBT 1998 SIGMOIDOSCOPY 1998 VIRTUAL COLONOSCOPY 1998 PNEUMOCOCCAL VACCINES (50+ years) (1 of 1 - PCV) 2003 OSTEOPOROSIS SCREENING INITIAL (ONE-TIME) 2018 ZOSTER VACCINES (3 of 3) 08/09/2018 06/14/2018, 050 11/2017 INFLUENZA VACCINE (#1) 2025 , 08/15/2019, 07/03/2018, Additional history exists COVID-19 VACCINE (3 - 2024- season) 2025 12/29/2020, 12/01/2020 Adult Td,Tdap Booster 01/21/2027 01/21/2017, 017 RSV VACCINE (1 - 1-dose 75+ series) 02/11/2028 HEPATITIS A VACCINES Aged Out No long er eligible based on patient's age to complete this topic HIB VACCINES Aged Out No longer eligi ble based on patient's age to complete this topic MENINGOCOCCAL VACCINES (ACWY) Aged Out No longer eligible based on patient's age to complete this topic MENINGOCOCCAL VACCINES (B) Aged Out N o longer eligible based on patient's age to complete this topic Medical Devices Not on file Insurance MEDICARE PART A & B [facility] MEDICARE PART A & B [id number] [place] [address] MEDICARE PART A & B [facility] MEDICARE PART A & B [facility] MEDICARE PART A & B [facility] MEDICARE PART A & B [facility] MEDICARE PART A & B [facility] MEDICARE PART A & B [facility] MEDICARE PART A & B [employer] Care Teams Ice Sculptor Relationship Specialty Start Date End Date Mau Ness NP [address] [place] [address] PCP - General Family Medicine 11/23/20 Additional Source Comments The information contained in this document represents components of the legal health record. It is not the complete legal health record.[facility]
[2025-08-25 11:24] LABS: MANUAL DIFF FLAG NO
[2025-08-25 11:30] LABS: Hematocrit 41.1 % (37.0-47.0); Hemoglobin 13.3 g/dl (12.0-16.0); Imm Gran Abs Auto 0.01 X10*3/uL (0.00-0.03); Imm Gran Pct Auto 0.2 % (0.0-0.4); Lymphocytes Absolute Auto 1.5 X10*3/uL (1.2-4.9); Mean Corpuscular HGB Conc 32.4 g/dl (31.0-35.0); Mean Corpuscular Hemoglobin 28.7 pg (27.0-33.0); Mean Corpuscular Volume 88.8 fL (80.0-98.0); NRBC Abs Auto 0.000 X10*3/uL (0.0-0.012); NRBC Pct Auto 0.0 /100WBC (0.0-0.2); Platelet Count 236 X10*3/uL (160-400); Red Blood Count 4.63 X10*6/uL (4.20-5.50); Reticulocytes Absolute 0.063 X10*6/uL (0.026-0.095); White Blood Count 5.2 X10*3/uL (4.8-10.8)
[2025-08-25 12:08] LABS: Alanine Aminotransferase 20 U/L (0-31); Albumin Level 4.4 g/dL (3.5-5.0); Alkaline Phosphatase 39 U/L (39-117); Anion Gap 9 (12-20); Aspartate Amino Transferase 29 U/L (5-31); Blood Urea Nitrogen 15 mg/dL (9-16); Calcium 9.7 mg/dL (8.4-10.2); Carbon Dioxide 30 mmol/L (22-29); Chloride 106 mmol/L (96-108); Cholesterol 175 mg/dL (<200); Estimated Glomerular Filt Rate > 60; HDL Cholesterol 63 mg/dL (>40); Potassium 3.9 mmol/L (3.3-5.1); Sodium 141 mmol/L (135-145); Total Protein 6.7 g/dL (6.5-8.0); Triglycerides 102 mg/dL (<150)
[2025-08-25 14:05] LABS: Appearance Urine Turbid; Glucose Urine UA Negative (Negative); PH 8.5 (5.0-9.0); Specific Gravity - Urine 1.015 (1.005-1.025)
== END 2025-08-25 08:02 | disposition home or self-care (01) ==
LOC: HO.WFDLDS 08:01
PROVIDERS: Visit Provider Nurse Practitioner Family
DX: Z13.6 Encounter for screening for cardiovascular disorders (principal); Z13.29 Encounter for screening for other suspected endocrine disorder; R17 Unspecified jaundice
CPT/HCPCS: 36415; 80053; 80061; 81003; 83010; 83615; 84443; 85025; 85045

== ENCOUNTER 2025-08-26 09:22 | Outpatient (REF) | payer MEDICARE, BC, SELFPAY ==
--- NOTE | ~2025-08-26 | US_ITS ---
EXAMINATION: US ABDOMEN LIMITED CLINICAL INFORMATION: K 82.4. Cholesterolosis the gallbladder.. COMPARISON: None available. TECHNIQUE: Real-time ultrasound of the right upper quadrant abdomen with a curvilinear transducer using grayscale technique. FINDINGS: PANCREAS: No peripancreatic fluid collections. LIVER: Liver measures 11 cm. No nodular surface. Normal echotexture. No solid or cystic lesion. No intrahepatic biliary ductal dilatation. GALLBLADDER: There is a 1 mm round isoechoic structure attached to the gallbladder wall. No distention. No pericholecystic fluid collection or gallbladder wall thickening. COMMON BILE DUCT 3 mm. RIGHT KIDNEY: 11 cm. Normal echotexture. Normal renal cortical thickness. No hydronephrosis. No solid or cystic lesion. Probable extrarenal pelvis.. FREE FLUID: None. US/US abdomen limited IMPRESSION: 1 mm gallbladder polyp. Recommend follow-up. Electronically signed by: Vincent Driver MD 08/26/2025 10:44 AM EDT
--- OUTSIDE RECORDS SUMMARY | 2025-08-26 10:28 | XMS_ITS | Clinical Summary ---
Author Organization [address] [facility] Address [address] [place] [address] Phone Care Team Providers Care Gymnastics Coach Name Role Phone Jerrydimple Mau Borges NP Primary Care Provider [phone] Allergies No known active allergies Medications alendronate [...] Last 3 Months Insurance MEDICARE Care Teams Gymnastics Coach Relationship Specialty Start Date End Date [facility]au Ness [facility] [address] [facility] [place] [facility] - General Family Medicine 12/24/24
--- OUTSIDE RECORDS SUMMARY | 2025-08-26 10:28 | XMS_ITS | Clinical Summary ---
Author Organization [facility] Address [address] [facility] [address] [place] [address] Phone Care Team Providers Care Manager Policy Name Role Phone Mau Ness REGISTERED NURSE MIDWIFE Primary Care Provider + Medications levothyroxine (SYNTHROID) [...] file Insurance MEDICARE PART A & B [facility] MEDICARE PART A & B [id number] [place] [address] MEDICARE PART A & B [facility] MEDICARE PART A & B [facility] MEDICARE PART A & B [facility] MEDICARE PART A & B [facility] MEDICARE PART A & B [facility] MEDICARE PART A & B [facility] MEDICARE PART A & B [place] [employer] Care Teams Manager Policy Relationship Specialty Start Date End Date Mau Ness NP [address] [place] [address] PCP - General Family Medicine 11/23/20 Additional Source Comments The information contained in this document represents components of the legal health record. It is not the complete legal health record.[facility]
== END 2025-08-26 09:23 | disposition home or self-care (01) ==
LOC: HO.US 09:22
PROVIDERS: PCP Nurse Practitioner Family; Visit Provider Nurse Practitioner Family
DX: K82.4 Cholesterolosis of gallbladder (principal)
CPT/HCPCS: 76705

== ENCOUNTER → 2025-08-26 09:25 | Outpatient (BNV) | payer MEDICARE, BC, SELFPAY | PROVIDERS: PCP Nurse Practitioner Family; Visit Provider Radiology Diagnostic Radiology | DX: K82.4 Cholesterolosis of gallbladder (principal) | CPT/HCPCS: 76705 ==

== ENCOUNTER 2025-08-26 10:28 | Outpatient (REF) | payer MEDICARE, BC, SELFPAY ==
[2025-08-26 14:24] LABS: Appearance Urine Turbid; Glucose Urine UA Negative (Negative); PH 7.5 (5.0-9.0); Specific Gravity - Urine 1.020 (1.005-1.025); UMIC TRIGGER UACC YES
[2025-08-26 14:26] LABS: MANUAL DIFF FLAG NO
[2025-08-26 14:32] LABS: Other Crystals Urine Present
[2025-08-26 14:42] LABS: Hematocrit 39.9 % (37.0-47.0); Hemoglobin 12.9 g/dl (12.0-16.0); Imm Gran Abs Auto 0.01 X10*3/uL (0.00-0.03); Imm Gran Pct Auto 0.2 % (0.0-0.4); Lymphocytes Absolute Auto 1.5 X10*3/uL (1.2-4.9); Mean Corpuscular HGB Conc 32.3 g/dl (31.0-35.0); Mean Corpuscular Hemoglobin 28.3 pg (27.0-33.0); Mean Corpuscular Volume 87.5 fL (80.0-98.0); NRBC Abs Auto 0.000 X10*3/uL (0.0-0.012); NRBC Pct Auto 0.0 /100WBC (0.0-0.2); Platelet Count 226 X10*3/uL (160-400); Red Blood Count 4.56 X10*6/uL (4.20-5.50); Reticulocytes Absolute 0.058 X10*6/uL (0.026-0.095); White Blood Count 5.1 X10*3/uL (4.8-10.8)
[2025-08-26 14:55] LABS: Alanine Aminotransferase 20 U/L (0-31); Albumin Level 4.5 g/dL (3.5-5.0); Alkaline Phosphatase 38 U/L (39-117); Amylase 85 U/L (28-100); Anion Gap 12 (12-20); Aspartate Amino Transferase 28 U/L (5-31); Blood Urea Nitrogen 18 mg/dL (9-16); Calcium 9.1 mg/dL (8.4-10.2); Carbon Dioxide 28 mmol/L (22-29); Chloride 107 mmol/L (96-108); Estimated Glomerular Filt Rate > 60; Lipase 21 U/L (8-78); Potassium 4.0 mmol/L (3.3-5.1); Sodium 143 mmol/L (135-145); Total Protein 6.9 g/dL (6.5-8.0)
[2025-08-26 15:13] LABS: Carcinoembryonic Antigen 2.00 ng/mL
[2025-08-27 04:25] LABS: HBc Num1 0.04 S/CO (0.00-0.79); HBsAGNum1 0.29 S/CO (0.00-0.99); Hepatitis A Antibody IgM 0.15 Index (0-0.79); Hepatitis B Surface Antigen Negative (Negative); ~Hepatitis A Antibody IgM Nonreactive (Nonreactive)
[2025-08-27 04:50] LABS: HBS Num1 59.46 mIU/mL (0-7.99); ~HepC Num1 0.06 S/CO (0.00-0.79); ~Hepatitis B Surface Antibody REACTIVE (Nonreactive); ~Hepatitis C Antibody Nonreactive (Nonreactive)
== END 2025-08-26 10:29 | disposition home or self-care (01) ==
LOC: HO.WFDLDS 10:28
PROVIDERS: Visit Provider Nurse Practitioner Family
DX: R17 Unspecified jaundice (principal); R10.13 Epigastric pain
CPT/HCPCS: 36415; 80053; 81001; 82150; 82248; 82378; 83010; 83615; 83690; 85025; 85045; 86015; 86140; 86301; 86381; 86704; 86706; 86709; 86803; 87340

== ENCOUNTER 2025-09-01 12:19 | Outpatient (AMB) | payer MEDICARE, BC, SELFPAY ==
--- NOTE | 2025-09-01 12:31 | A.OFFPC_ITS ---
Vital Signs 09/01/25 12:33 Height 5 ft 1 in Weight 121 lb BMI 22.9 BP 124/70 Blood Pressure Location Lt brachial Position Sitting Respiration 16 Pulse 65 Pulse Source Pulse Oximeter Pulse Oximetry (%) 97 Oxygen Delivery Method Room Air Intake Visit Reasons: PE Beating Machine Operator Required: No Accompanied by: Self / Same As Patient Allergies No Known Allergies (No Known Allergies*) Allergy (Verified 09/01/25 13:13) Medication List - Last Reconciled 09/01/25 by ARUNA HornP- alendronate (Fosamax) 70 mg PO QWEEK ascorbic acid-collagen 125-740 mg (Collagen Plus Vitamin C) caps PO atorvastatin 20 mg PO BEDTIME biotin mcg PO calcium carbonate (Calcium 500) 500 mg PO DAILY cholecalciferol (vitamin D3) 25 mcg PO DAILY clonazepam 0.5 mg PO DAILY PRN 30 days levothyroxine 88 mcg PO DAILY 90 days magnesium 200 mg PO DAILY Saccharomyces boulardii (Digest Probiotic (S.boulardii)) 5,000 mmu cells PO DAILY sertraline 25 mg PO DAILY zolpidem 5 mg PO BEDTIME PRN 30 days Tobacco use date assessed: 09/01/25 Fall risk assessment: 1 Fall in past year Last assessed Fall Risk: 09/01/25 Dental Screening Dental Screen Date: 09/01/25 Did you have a dental visit in the last 12 months?: Yes Did you have a dental problem in the last 6 months where you did not have access to dental care?: No HPI PE HPI Details History of Present Illness The patient is a 70-year-old female presenting for a physical examination. She has a history of slightly elevated bilirubin, with a higher indirect than direct fraction, previously attributed possibly to Gilbert syndrome. Associated historical lab findings include a low haptoglobin and an elevated LDH, though her hemoglobin and hematocrit have remained stable without evidence of hemolysis. Previous workup was negative for CA 19-9, mitochondrial antibody, and smooth muscle antibody. The patient also reports intermittent and random epigastric discomfort. The discomfort is not associated with meals, including fatty foods, and a prior general surgery evaluation did not recommend gallbladder removal. For health maintenance, a mammogram is scheduled, and she is due for a colonoscopy. Health Maintenance The patient is due for a colon cancer screening, which will be coordinated with the gastroenterology referral. She already has a mammogram scheduled. -bone density is up to date -continued CT of lungs to watch pulmonar y nodules -hida scan showed abnormal emptying (chris menendez saw GS) Social History - Exercise: The patient is fit and walks on a regular basis. - Diet: The patient eats well. Review of Systems - Cardiovascular: Denies chest pain. - Respiratory: Denies shortness of breat h. - Gastrointestinal: Reports intermittent , random epigastric discomfort. - Denies pain after eating, blood in sto ol, constipation, or diarrhea. - Psychiatric: Denies suicidal or homici elvin ideation. Physical Exam General: Cooperative, healthy appearing, comfortable, no acute distress and well developed Orientation: Patient oriented x3 Limitations: No limitations Head: Normal to inspection Ears: Hearing grossly normal bilaterally Nose: Normal external nose present Face and sinus: Normal facial exam Eyes: Appearance normal, both eyes and all related structures Neck: Normal visual inspection and Yes full ROM Respiratory: Normal respiratory effort and able to speak in complete sentences. Clear to auscultation bilaterally Cardiovascular: Regular rate and rhythm. Normal S1 and S2 GI: Normal to inspection. Soft to palpation and nontender Skin: No rashes or lesions noted Neuro: Patient oriented x3 Extremities: Normal to inspection Results - Bilirubin: Elevated, with indirect fra ction higher than direct. - Haptoglobin: Low. - Lactate dehydrogenase (LDH): Elevated. - Hemoglobin and Hematocrit: Stable and not low. - CA 19-9: Negative/not increased. - Mitochondrial antibody: Negative. - Smooth muscle antibody: Negative. Plan 1. Hyperbilirubinemia, Low Haptoglobin, And Elevated Ldh The patient has a history of elevated indirect bilirubin, possibly consistent with Gilbert syndrome, along with a low haptoglobin and elevated LDH. Despite the labs suggestive of hemolysis, her H&H is stable. A referral will be placed to gastroenterology for further evaluation of these findings. 2. Epigastric Discomfort The patient experiences intermittent and random epigastric discomfort that is not related to meals. A previous surgical evaluation did not find a gallbladder etiology. This will be further assessed by the casting machine operator helper during the upcoming consultation. Discussion Notes I have discussed with the patient her persistent lab abnormalities, including elevated bilirubin, low haptoglobin, and elevated LDH. I explained that while Gilbert syndrome is a possible cause for her bilirubin levels, the other findings are unclear, especially with a stable blood count. We reviewed her intermittent epigastric pain and the low likelihood of it being gallbladder- related. I have informed her that I am placing a referral to gastroenterology for a comprehensive evaluation of these issues and to arrange her due colon cancer screening. Patient Instructions - Please follow up with the gastroentero logy specialist as referred to investigate your lab results and stomach discomfort. - You are due for a colonoscopy, which c an be arranged with the casting machine operator helper. - Please attend your scheduled mammogram appointment. - Continue to maintain your active lifes tyle and healthy diet. [facility] Medical History Osteoporosis Ascending aorta dilatation Gallbladder polyp Social History Housing: House Patient Tobacco Use Status: Former Tobacco user e-Cigarette/Vaping Use: Never Used Second Hand Smoke Exposure: No service: No Current occupational status: retired Cognitive needs: No Hearing needs: No Vision needs: No Questionnaire PHQ-9 Over the last 2 weeks, how often have you been bothered by any of the following problems? 1. Little interest or pleasure in doing things: not at all 2. Feeling down, depressed, or hopeless: nearly every day 3. Trouble falling or staying asleep, or sleeping too much: several days 4. Feeling tired or having little energy: not at all 5. Poor appetite or overeating: not at all 6. Feeling bad about yourself - or that you are a failure or have let yourself or your family down: not at all 7. Trouble concentrating on things, such as reading the newspaper or watching television: not at all 8. Moving or speaking so slowly that other people could have noticed. Or the opposite - being so fidgety or restless that you have been moving around a lot more than usual: not at all 9. Thoughts that you would be better off or of hurting yourself in some way: not at all Total score: 4 Depression Screening Interpretation: Negative Depression Screening Done: Yes 94418 - PHQ-9 Billing: Yes Source: Developed by Drs. Bernardo Aden, Ana Cedeno, Remigio Tucker and colleagues, with an educational hanh from [employer]. Thrive Questionnaire Date Thrive assessed: 02/19/25 I am a: Patient What is your living situation today?: I have a steady place to live Within the past 12 months, did the food you bought not last and you didn't have the money to get more?: Never true Within the past 12 months, did you worry whether your food would run out before you got money to buy more?: Never true Do you have trouble paying for medicines?: No Do you have trouble getting transportation to medical appointments?: No Do you have trouble paying your heating and electricity bill?: No Do you have trouble taking care of your child, family member or friend?: No Do you have trouble with day-to-day activities such as bathing, preparing meals, shopping, managing finances, etc.?: No Are you currently unemployed and looking for a job?: No Are you interested in more education?: Yes Please select the resources that you would like help with: None Currently or been in a relationship where the following occur: No concerns reported THRIVE Score: 0 TEMITOPE-7 AMB Questionnaire TEMITOPE-7 Date TEMITOPE - 7 assessed: 02/25/25 Feeling nervous, anxious, or on edge: 3 = Nearly every day Not being able to stop or control worryin = Several days Worrying too much about different things: 0 = Not at all Trouble relaxin = Not at all Being so restless that it is hard to sit still: 0 = Not at all Becoming easily annoyed or irritable: 0 = Not at all Feeling afraid as if something awful might happen: 0 = Not at all Total TEMITOPE-7 score (0-4 normal; 5-9 mild; 10-14 moderate; 15-21 severe): 4 Source: Developed by Drs. Bernardo Aden, Ana Cedeno, Remigio Tucker and colleagues, with an educational hanh from [employer]. TEMITOPE-7 Assessment Billing TEMITOPE-7 Assessment Tool: TEMITOPE-7 Assessment 32014 Physical exam (Primary Care) Vital Signs: Last Vital Signs Pulse 65 09/01/25 12:33 Resp 16 09/01/25 12:33 BP 124/70 09/01/25 12:33 Pulse Ox 97 09/01/25 12:33 Oxygen Delivery Method Room Air 09/01/25 12:33 BMI result Body Mass Index 22.9 Tobacco/Smoking Status: Tobacco use Status Tobacco use date assessed 09/01/25 09/01/25 12:43 Patient Tobacco Use Status Former Tobacco user 09/01/25 12:32 e-Cigarette/Vaping Use Never Used 09/01/25 12:32 PHQ-9: PHQ-9 Score PHQ-9: Total score 4 09/01/25 12:45 Depression Screening Interpretation: Negative Thrive Assessment: Date of Thrive Assessment Date Thrive assessed 02/19/25 09/01/25 12:32 Currently or been in a relationship where the following occur: No concerns reported Coding Level of Care Code Est Pt Prev Care >65y(63351) Diagnoses Epigastric discomfort R10.13 Screening for colon cancer Z12.11 Physical exam Z00.00 Elevated bilirubin R17 Additional Codes TEMITOPE-7 Assessment Billing - TEMITOPE-7 Assessment Tool: TEMITOPE-7 Assessment 85699 ([id number]) PHQ-9 - 30040 - PHQ-9 Billing: Yes ([id number]) Assessment & Plan Assessment & Plan (1) Epigastric discomfort: Code(s): R10.13 - Epigastric pain Category: Medical (2) Screening for colon cancer: Code(s): Z12.11 - Encounter for screening for malignant neoplasm of colon Category: Medical (3) Physical exam: Code(s): Z00.00 - Encounter for general adult medical examination without abnormal findings Category: Medical (4) Elevated bilirubin: Comment: elevated LDH, low haptoglobin Code(s): R17 - Unspecified jaundice Category: Medical Plan . Orders: Referrals Gastroenterology Referral R10.13 - Epigastric pain, Z12.11 - Encounter for screening for malignant neoplasm of colon Medications: Refilled clonazepam 0.5 mg PO DAILY PRN 30 tabs 2RF anxiety 30 days
[2025-09-01 12:33] VITALS: BP 124/70; PULSE 65; RESP 16; O2SAT 97; BMI 22.9
--- OUTSIDE RECORDS SUMMARY | 2025-09-01 15:42 | XMS_ITS | Data Portability ---
Author Organization [facility], [address] Address [address] [place] [address] Assessment No assessment recorded. Plan of Treatment Reminders Order Date Submit Date Provider Last Modified By Organization Details Last Modified Time Details Appointments None recorded. Lab urinalysis , dipstick 2023 024 [email or web address] _ [facility], [address] [place], [address], 17:32:47 culture, urine 2023 024 [facility], [address] [place] [address], [place], [address], 22:05:58 Referral None recorded. Procedures None recorded. Surgeries None recorded. Imaging None recorded. Medication Orders Macrobid 100 mg capsule 2023 024 [id number], [address] [facility] [address], [place], [address], 17:37:16 Patient TargetsNo targets recorded. Patient InstructionsNo instructions recorded. Reason for Referral None Reported. Results Created Date Observation Date Name Description Value Unit Range Abnormal Flag Note LastModifiedBy Organization Detail LastModifiedTime 07/07/2007/08/2024 URINE CULTU RE, BENTON NE urine culture, routine FINAL REPORT Not Available [facility] [address] [facility], [place], [address], 07/08/2024 22:05:58 07/07/2007/08/2024 URINE CULTU RE, ROUTI NE result 1 NO GROWTH Not Available [facility] [address] [facility], [place], [address], 07/08/2024 22:05:58 07/07/20 24 07/07/2024 urina lysis , dipst ick Unknown Analyte Normal = light yellow Not Available [facility] [address] [place] [address], [phone], 07/07/2024 17:16:21 07/07/20 24 07/07/2024 urina lysis , dipst ick Unknown Analyte Yellow Not Available [facility] [address] [place] [address], [phone], 07/07/2024 17:16:21 07/07/20 24 07/07/2024 urina lysis , dipst ick Unknown Analyte Normal = clear Not Available [facility] [address] [place] [address], [address], 07/07/2024 17:16:21 07/07/20 24 07/07/2024 urina lysis , dipst ick Unknown Analyte Clear Not Available [facility] [address] [place] [address], [phone], 07/07/2024 17:16:21 07/07/20 24 07/07/2024 urina lysis , dipst ick Unknown Analyte Normal = negati ve Not Available [facility] [address] [place] [address], [phone], 07/07/2024 17:16:21 07/07/20 24 07/07/2024 urina lysis , dipst ick Unknown Analyte Negati ve Not Available [facility] [address] [place] [address], [phone], 07/07/2024 17:16:21 07/07/20 24 07/07/2024 urina lysis , dipst ick Unknown Analyte Normal = Negati ve Not Available [facility] [address] [place] [address], [phone], 07/07/2024 17:16:21 07/07/20 24 07/07/2024 urina lysis , dipst ick Unknown Analyte Negati ve Not Available [facility] [address] [place] [address], [phone], 07/07/2024 17:16:21 07/07/2007/07/2024 urina lysis , dipst ick Unknown Analyte Normal = Negati ve Not Available [facility] [address] [place] [address], [address], 07/07/2024 17:16:21 07/07/2007/07/2024 urina lysis , dipst ick Unknown Analyte Negati ve Not Available [facility] [address] [place] [address], [phone], 07/07/2024 17:16:21 07/07/2007/07/2024 urina lysis , dipst ick Unknown Analyte Normal = 1.010, 1.015, 1.020 Not Available [facility] [address] [place] [address], [phone], 07/07/2024 17:16:21 07/07/2007/07/2024 urina lysis , dipst ick Unknown Analyte 1.015 Not Available [facility] [address] [place] [address], [phone], 07/07/2024 17:16:21 07/07/2007/07/2024 urina lysis , dipst ick Unknown Analyte Normal = Negati ve Not Available [facility] [address] [place] [address], [phone], 07/07/2024 17:16:21 07/07/20 24 07/07/2024 urina lysis , dipst ick Unknown Analyte Trace- intact Not Available [facility] [address] [place] [address], [address], 07/07/2024 17:16:21 07/07/20 24 07/07/2024 urina lysis , dipst ick Unknown Analyte Normal = 6.5, 7.0, 7.5, 8.0 Not Available [facility] [address] [place] [address], [address], 07/07/2024 17:16:21 07/07/20 24 07/07/2024 urina lysis , dipst ick Unknown Analyte 7.0 Not Available [facility] [address], [address], 07/07/2024 17:16:21 07/07/20 24 07/07/2024 urina lysis , dipst ick Unknown Analyte Normal = Negati ve Not Available [facility] ie [address], [address], 07/07/2024 17:16:21 07/07/20 24 07/07/2024 urina lysis , dipst ick Unknown Analyte Negati ve Not Available [facility] [address] [place] [address], [phone], 07/07/2024 17:16:21 07/07/20 24 07/07/2024 urina lysis , dipst ick Unknown Analyte Normal = 0.2, 1.0 Not Available [facility] ie [address], [address], 07/07/2024 17:16:21 07/07/20 24 07/07/2024 urina lysis , dipst ick Unknown Analyte 0.2 E.U./d L Not Available [facility] [address] [place] [address], [phone], 07/07/2024 17:16:21 07/07/20 24 07/07/2024 urina lysis , dipst ick Unknown Analyte Normal = Negati ve Not Available [facility] [address] [place] [address], [phone], 07/07/2024 17:16:21 07/07/20 24 07/07/2024 urina lysis , dipst ick Unknown Analyte Negati ve Not Available [facility] [address] [place] [address], [address], 07/07/2024 17:16:21 07/07/20 24 07/07/2024 urina lysis , dipst ick Unknown Analyte Normal = Negati ve Not Available [facility] [address] [place] [address], [address], 07/07/2024 17:16:21 07/07/20 24 07/07/2024 urina lysis , dipst ick Unknown Analyte Small Not Available [address] [facility] [address] [place] [address], [phone], 07/07/2024 17:16:21 Result Notes None recorded. Problems Name Problem SNOMED Code Status Onset Date Resolution Date Notes Provider Name and Address Organization Details Recorded Time Hyperlipidemia 22480820 Active MONICA riley, [place] - [facility] 17:12:47 Hypothyroidism 38410786 Active MONICA riley, [place] - [facility] 17:13:00 Acute urinary tract infection 944428898 Active 2023 Nolan Diana NP [address] [place], [place], [address] , [place] - [facility] 17:32:32 Problem [...] Updated DateTime 4 154.94 cm 21.7 kg/m2 13049.1 2 g 100 % 100 % 63 [...] ICD10 Code Diagnosis IMO Codes Diagnosis Note [id number] [facility] [address] [place] [address] 02/11/2016 13:20:22 02/11/2016 14:50:00 [id number] [place] [facility] [address] [address] 07/07/2024 17:03:05 07/07/2024 17:37:47 Acute urinary tract infection 793171132 N39.0 We recommend you get a repeat [...] ID Guarantor Name 07/07/2024 1 [place]IC[place]: [employer] Regi Hampton [id number] Regi Hampton 07/07/2024 2 [place] [employer] Gui Hampton [id number] Regi Memo Notes Date Note Type Note [...] Diana NP [address] [place], [address], [place] - [facility] 07/07/2024 17:38:28 OBGyn Episode No OBEpisode recorded.
--- OUTSIDE RECORDS SUMMARY | 2025-09-01 15:42 | XMS_ITS | Clinical Summary ---
Author Organization [facility] Address [address] [facility] [address] [place] [address] Phone Care Team Providers Care Medication Manager Name Role Phone Mau Ness QA DEVELOPER Primary Care Provider + Medications levothyroxine (SYNTHROID) [...] file Insurance MEDICARE PART A & B [facility] Address: [facility] [id number] [place] [address] MEDICARE PART A & B [id number] [place] [address] MEDICARE PART A & B [facility] & [facility] & [facility] Address[facility] [id number] [place] [address] MEDICARE PART A & B [facility] MED[facility] PART A & B [place] Care Teams Medication Manager Relationship Specialty Start Date End Date Mau Ness NP [address] [place] [address] PCP - General Family Medicine 11/23/20 Additional Source Comments The information contained in this document represents components of the legal health record. It is not the complete legal health record.[facility]
--- OUTSIDE RECORDS SUMMARY | 2025-09-01 15:42 | XMS_ITS | Clinical Summary ---
Author Organization [address] [facility] Address [address] [place] [address] Phone Care Team Providers Care Child Care Provider Name Role Phone Jerrydimple Mau Borges NP Primary Care Provider [phone] Allergies No known active allergies Medications alendronate [...] Last 3 Months Insurance MEDICARE Care Teams Child Care Provider Relationship Specialty Start Date End Date Mau Ness NP [address] [facility] [place] PCP - General Family Medicine 12/24/24
== END 2025-09-01 14:49 | disposition home or self-care (01) ==
LOC: HO.HMCC 12:20
PROVIDERS: PCP Nurse Practitioner Family; Visit Provider Nurse Practitioner Family
DX: Z00.00 Encounter for general adult medical examination without abnormal findings (principal); R10.13 Epigastric pain; Z12.11 Encounter for screening for malignant neoplasm of colon; R17 Unspecified jaundice

== ENCOUNTER → 2025-09-01 12:19 | Outpatient (BNVA) | payer MEDICARE, BC, SELFPAY | PROVIDERS: PCP Nurse Practitioner Family; Visit Provider Nurse Practitioner Family | DX: Z00.00 Encounter for general adult medical examination without abnormal findings (principal); R10.13 Epigastric pain; R17 Unspecified jaundice; Z13.31 Encounter for screening for depression | CPT/HCPCS: 96127; 99397 ==

== ENCOUNTER 2025-10-21 16:30 | Outpatient (REF) | payer MEDICARE, BC, SELFPAY ==
--- NOTE | ~2025-10-21 | CT_ITS ---
EXAMINATION: CT CHEST WITHOUT CONTRAST CLINICAL INFORMATION: Reason for Exam-R91.8 - Other nonspecific abnormal finding of lung field. PULMONARY NODULES COMPARISON: Chest CT on October 08, 2024 TECHNIQUE: Multidetector volumetric CT imaging of the chest was done. Axial MIP volume rendering provided. Sagittal and coronal reformatted images were obtained. This CT examination was performed using dose optimization techniques as appropriate, variously including the following: *Automated exposure control *Adjustment of mA and/or kV according to patient size (this includes techniques or standardized protocols for targeted exams where dose is matched to indication/reason for exam; i.e. extremities or head) *Use of iterative reconstruction technique FINDINGS: TRANSPORTATION ENGINEER: No lines or tubes. LUNGS: Central airways are patent. No lung consolidation. A few sub-6 mm pulmonary nodules are unchanged from October 2024, for example: Lateral right upper lobe (4:89/519), anterolateral left upper lobe (4:222/519), lateral left lower lobe (4:238/519), left lower lobe (4:264/519) and lateral left lower lobe (4:385/519). No new or enlarging pulmonary nodules. PLEURA: No pneumothorax or pleural effusion. MEDIASTINUM: Heart is normal in size. No pericardial effusion. Moderate coronary artery calcifications. Scattered calcifications along the thoracic aorta. AXILLA: No lymphadenopathy. UPPER ABDOMEN: Vascular calcifications. OSSEOUS STRUCTURES: No acute or destructive bone lesions CT/CT chest wo IV con IMPRESSION: Bilateral pulmonary nodules measuring sub-6mm, unchanged from October 2024. No new or enlarging pulmonary nodules. Based on Fleischner Criteria 2017, new multiple solid pulmonary nodules measuring <6 mm in low risk patients do not require further imaging studies. However, patients with a history of smoking/asbestos/radiation exposure or a 1st degree relative with lung cancer should consider having a follow-up non-contrast CT in 1 year. If unchanged, no further follow-up studies would be indicated. Note that patients with an infectious process, personal history of cancer, and those with advanced age/co-morbidities may require adjustments to these recommendations. Electronically signed by: Ken Salmon MD 10/21/2025 05:23 PM [facility]
--- OUTSIDE RECORDS SUMMARY | 2025-10-21 19:44 | XMS_ITS | Clinical Summary ---
Author Organization [facility] Address [address] [facility] [address] [place] [address] Phone Care Team Providers Care Construction Pit Worker Name Role Phone Mau Ness PLUMBING INSTALLER Primary Care Provider + Medications levothyroxine (SYNTHROID) [...] file Insurance MEDICARE PART A & B [facility] MEDICARE PART A & B [id number] [place] [address] MEDICARE PART A & B [facility] MEDICARE PART A & B [facility] MEDICARE PART A & B [facility] MEDICARE PART A & B [facility] MEDICARE PART A & B [facility] MEDICARE PART A & B [facility] MEDICARE PART A & B [employer] FEDERAL Care Teams Construction Pit Worker Relationship Specialty Start Date End Date Mau Ness NP [address] [place] [address] PCP - General Family Medicine 11/23/20 Additional Source Comments The information contained in this document represents components of the legal health record. It is not the complete legal health record.[facility]
--- OUTSIDE RECORDS SUMMARY | 2025-10-21 19:44 | XMS_ITS | Clinical Summary ---
Author Organization [address] [facility] Address [address] [place] [address] Phone Care Team Providers Care Watch Parts Grinder Name Role Phone Mau Ness NP Primary Care Provider [phone] Allergies No known active allergies Medications alendronate [...] Encounters Date Type Department Care Team Description 09/02/2025 Telephone Gastroenterology - [address] [facility] [address] [facility] [address] [place] [address] Christian Cardenas MD from Last 3 Months Social History Tobacco [...] Care Team (Late st Contact Info) Description 04/07/2026 10:00 AM EDT Consult Gastroenterology - [address] [facility] [address] [place] [address] Cathy Mattson NP [address] [facility] [address] [place] [address] Health Maintenance Due Date Last Done Comments [...] 9:51 AM EDT from Last 3 Months or Most Recently Relevant to Health Maintenance Results * External Colonoscopy Report (06/23/2025 9:51 AM EDT) Anatomical Region Laterality Modality Endoscopy Historical Provider GI~PROCEDURE ORDERABLES F inal Result from Last 3 Months or Most Recently Relevant to Health Maintenance Insurance MEDICARE [facility] Care Teams Watch Parts Grinder Relationship Specialty Start Date End Date Mau Ness NP [address] [place], [place] PCP - General Family Medicine 12/24/24
--- OUTSIDE RECORDS SUMMARY | 2025-10-21 19:44 | XMS_ITS | Data Portability ---
Author Organization [facility], [address] Address [address] [place] [address] Assessment No assessment recorded. Plan of Treatment Reminders Order Date Submit Date Provider Last Modified By Organization Details Last Modified Time Details Appointments None recorded. Lab urinalysis , dipstick 2023 024 [email or web address] [facility], [address] [place], [address], 17:32:47 culture, urine 2023 024 OGUNQUIT [facility], [address] [place] [address], [place], [address], 22:05:58 Referral None recorded. Procedures None recorded. Surgeries None recorded. Imaging None recorded. Medication Orders Macrobid 100 mg capsule 2023 024 OGUNQUIT [id number], [address], [place], [address], 17:37:16 Patient TargetsNo targets recorded. Patient InstructionsNo instructions recorded. Reason for Referral None Reported. Results Created Date Observation Date Name Description Value Unit Range Abnormal Flag Note LastModifiedBy Organization Detail LastModifiedTime 07/07/2007/08/2024 URINE CULTU RE, [place] NE urine culture, routine FINAL REPORT Not Available [facility] ([facility]) [address] [facility], [place], [address], 07/08/2024 22:05:58 07/07/2007/08/2024 URINE CULTU RE, ROUTI NE result 1 NO GROWTH Not Available [facility] ([facility]) [address] [facility], [place], [address], 07/08/2024 22:05:58 07/07/20 24 07/07/2024 urina lysis , dipst ick Unknown Analyte Normal = light yellow Not Available [facility] [address] [place] [address], [phone], 07/07/2024 17:16:21 07/07/20 24 07/07/2024 urina lysis , dipst ick Unknown Analyte Yellow Not Available [facility] [address] [place] [address], [phone], 07/07/2024 17:16:21 07/07/20 24 07/07/2024 urina lysis , dipst ick Unknown Analyte Normal = clear Not Available [facility] [address] [place] [address], [phone], 07/07/2024 17:16:21 07/07/20 24 07/07/2024 urina lysis , dipst ick Unknown Analyte Clear Not Available [facility] [address] [place] [address], [phone], 07/07/2024 17:16:21 07/07/20 24 07/07/2024 urina lysis , dipst ick Unknown Analyte Normal = negati ve Not Available [facility] [address] [place] [address], [phone], 07/07/2024 17:16:21 07/07/20 24 07/07/2024 urina lysis , dipst ick Unknown Analyte Negati ve Not Available [facility] [address] [place] [address], [phone], 07/07/2024 17:16:21 07/07/20 24 07/07/2024 urina lysis , dipst ick Unknown Analyte Normal = Negati ve Not Available [facility] [address] [place] [address], [phone], 07/07/2024 17:16:21 07/07/20 24 07/07/2024 urina lysis , dipst ick Unknown Analyte Negati ve Not Available [facility] [address] [place] [address], [phone], 07/07/2024 17:16:21 07/07/2007/07/2024 urina lysis , dipst ick Unknown Analyte Normal = Negati ve Not Available [facility] [address] [place] [address], [phone], 07/07/2024 17:16:21 07/07/2007/07/2024 urina lysis , dipst ick Unknown Analyte Negati ve Not Available [facility] [address] [place] [address], [phone], 07/07/2024 17:16:21 07/07/2007/07/2024 urina lysis , dipst ick Unknown Analyte Normal = 1.010, 1.015, 1.020 Not Available [facility] [address] [place] [address], [phone], 07/07/2024 17:16:21 07/07/2007/07/2024 urina lysis , dipst ick Unknown Analyte 1.015 Not Available [facility] [address] [place] [address], [phone], 07/07/2024 17:16:21 07/07/2007/07/2024 urina lysis , dipst ick Unknown Analyte Normal = Negati ve Not Available [facility] [address] [place] [address], [phone], 07/07/2024 17:16:21 07/07/20 24 07/07/2024 urina lysis , dipst ick Unknown Analyte Trace- intact Not Available [facility] [address] [place] [address], [phone], 07/07/2024 17:16:21 07/07/20 24 07/07/2024 urina lysis , dipst ick Unknown Analyte Normal = 6.5, 7.0, 7.5, 8.0 Not Available [facility] [address] [place] [address], [phone], 07/07/2024 17:16:21 07/07/20 24 07/07/2024 urina lysis , dipst ick Unknown Analyte 7.0 Not Available [facility] [address], [address], 07/07/2024 17:16:21 07/07/20 24 07/07/2024 urina lysis , dipst ick Unknown Analyte Normal = Negati ve Not Available [facility] [address], [phone], 07/07/2024 17:16:21 07/07/20 24 07/07/2024 urina lysis , dipst ick Unknown Analyte Negati ve Not Available [facility] [address] [place] [address], [phone], 07/07/2024 17:16:21 07/07/20 24 07/07/2024 urina lysis , dipst ick Unknown Analyte Normal = 0.2, 1.0 Not Available [facility] [address], [address], 07/07/2024 17:16:21 07/07/20 24 07/07/2024 urina lysis , dipst ick Unknown Analyte 0.2 E.U./d L Not Available [facility] [address] [place] [address], [address], 07/07/2024 17:16:21 07/07/20 24 07/07/2024 urina lysis , dipst ick Unknown Analyte Normal = Negati ve Not Available [facility] [address] [place] [address], [phone], 07/07/2024 17:16:21 07/07/20 24 07/07/2024 urina lysis , dipst ick Unknown Analyte Negati ve Not Available [facility] [address] [place] [address], [phone], 07/07/2024 17:16:21 07/07/20 24 07/07/2024 urina lysis , dipst ick Unknown Analyte Normal = Negati ve Not Available [facility] [address] [place] [address], [phone], 07/07/2024 17:16:21 07/07/20 24 07/07/2024 urina lysis , dipst ick Unknown Analyte Small Not Available [address] [facility] [address] [place] [address], [phone], 07/07/2024 17:16:21 Result Notes None recorded. Problems Name Problem SNOMED Code Status Onset Date Resolution Date Notes Provider Name and Address Organization Details Recorded Time Hyperlipidemia 08329869 Active MONICA riley, [place] - [facility] 17:12:47 Hypothyroidism 39706934 Active MONICA riley, [place] - [facility] 17:13:00 Acute urinary tract infection 466215762 Active 2023 Nolan Diana NP [address] [place], [place], [address] , [place] - [facility] 17:32:32 Problem Notes None recorded. 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 MONICA CLOUDTamika PA - [facility] 07/07/2024 17:14:02 Imaging [...] mass index (BMI) Body weight Oxygen saturation Heart rate Respiratory rate Body temperature Systolic And Diastolic Provider Name and Address Organization Details Last Updated DateTime 4 154.94 cm 21.7 kg/m2 73969.1 2 g 100 % 63 /min 18 /min 98.1 [degF] 128/72 mm[Hg] MONICA CLOUDTamika PA - [facility] 4 17:16:48 Social [...] ICD10 Code Diagnosis IMO Codes Diagnosis Note [id number] [facility] [address] [place] [address] 02/11/2016 13:20:22 02/11/2016 14:50:00 [id number] [place] [address] [phone] 07/07/2024 17:03:05 07/07/2024 17:37:47 Acute urinary tract infection 572045445 N39.0 We recommend you get a repeat [...] ID Guarantor Name 07/07/2024 1 MEDICARE B-[place]: [employer] Regi Hampton [id number] Regi Hampton 07/07/2024 2 [place]: [employer] Gui Hampton [id number] Regi Hampton Notes Date Note Type Note [...] Diana NP [address] [place], [address], [place] - [facility] 07/07/2024 17:38:28 OBGyn Episode No OBEpisode recorded.
== END 2025-10-21 16:31 ==
LOC: HO.CT 16:30
PROVIDERS: PCP Nurse Practitioner Family; Visit Provider Nurse Practitioner Family
DX: R91.8 Other nonspecific abnormal finding of lung field (principal)
CPT/HCPCS: 71250

== ENCOUNTER → 2025-10-21 16:32 | Outpatient (BNV) | payer MEDICARE, BC, SELFPAY | PROVIDERS: PCP Nurse Practitioner Family; Visit Provider Radiology Body Imaging | DX: R91.8 Other nonspecific abnormal finding of lung field (principal) | CPT/HCPCS: 71250 ==